=== PATIENT | female | born 1985 | race Caucasian/White ===

== ENCOUNTER 2017-11-17 05:10 | Inpatient (IN) | payer OTHER ==
[2017-11-16 16:54] LABS: Urine Appearance CLEAR; Urine Blood NEGATIVE (NEG); Urine Color DK YELLOW; Urine Glucose NEGATIVE (NEG); Urine Protein NEGATIVE (NEG); Urine Specific Gravity >=1.030 (1.005-1.030)
[2017-11-16 16:56] LABS: Absolute Lymphocytes (CBC) 1.5 K/uL (0.7-4.9); Absolute Monocytes 0.5 K/uL (0.1-1.3); Absolute Neutrophil 4.9 K/uL (1.8-8.0); Basophils % 0.5 % (0-1.3); Eosinophils % 1.3 % (0-4.4); Hematocrit 33.6 % (36.0-45.0); Lymphocytes % 20.9 % (15.3-44.8); MCH 26.8 pg (27.0-35.0); MCV 83.7 fL (80-100); MPV 11.3 fL (7.6-11.3); Monocytes % 6.7 % (3.3-12.3); RBC Red Blood Cell Count 4.02 M/uL (3.86-4.86)
[2017-11-16 17:03] LABS: Urine Bilirubin NEGATIVE (NEG); Urine Microscopic Reflex NO UMIC
[2017-11-16 17:10] LABS: Protime INR 0.91
[2017-11-16 23:53] LABS: RPR (Rapid Plasma Reagin) NON-REACT (NON-REACT); RPR Titer ND
[~2017-11-17 05:10] MED LIST: Ringers Lactate 1,000 ML IV PRN; Ringers Lactate 1,000 ML IV SCH
[2017-11-17] MEDS ORDERED: NA CIT/CITRIC AC 30 ML ORAL UDC ONE (06:06)
[2017-11-17] MEDS ORDERED: FAMOTIDINE 20 MG/2 ML VIAL IV ONE (06:07)
[2017-11-17] MEDS ORDERED: METOCLOPRAMIDE 10 MG/2mL INJ ONE (06:07)
[2017-11-17 06:38] VITALS: BMI 36.1
[2017-11-17] MEDS ORDERED: CARBOPROST TROME 250 MCG/ML IM ONE (07:09)
[2017-11-17] MEDS ORDERED: METHYLERGONOVINE 0.2MG/ML AMP IM ONE (07:09)
[2017-11-17] MEDS ORDERED: EPHEDRINE SULF 50 MG/ML SYR ONE (07:13)
[2017-11-17] MEDS ORDERED: GLYCOPYRROLATE 0.2 MG/ML SYR ONE (07:13)
[2017-11-17] MEDS ORDERED: MORPHINE SULFATE/PF 1 MG/ML (10 ML AMP) ONE (07:13)
[2017-11-17] MEDS ORDERED: OXYTOCIN 10 UNIT/ML ML IV ONE ×2 (07:14→07:44)
[2017-11-17] MEDS ORDERED: NS 0.9% VIAL 0 ML ONE (07:14)
[2017-11-17] MEDS ORDERED: CEFAZOLIN/SWI 2gm 2 GM/20 ML SYR IVP SCH (07:30)
[2017-11-17] MEDS ORDERED: ONDANSETRON HCL 40 MG/20 ML VIAL ONE (07:51)
[2017-11-17] MEDS ORDERED: BUPIVACAINE 0.75% (PF) 2 ML SP ONE (07:51)
[2017-11-17] MEDS ORDERED: ACETAMINOPHEN 500 MG TAB PO PRN (08:19)
[2017-11-17] MEDS ORDERED: KETOROLAC 30 MG/ML INJ IM PRN (08:19)
[2017-11-17] MEDS ORDERED: BISACODYL 10 MG RECTAL SUPP RECT PRN (08:19)
[2017-11-17] MEDS ORDERED: ONDANSETRON 4 MG (ODT) TAB PO PRN (08:19)
[2017-11-17] MEDS ORDERED: DIPHENHYDRAMINE 25 MG TAB/CAP PO PRN (08:19)
[2017-11-17] MEDS ORDERED: ONDANSETRON 4 MG/2 ML VIAL IV PRN (08:19)
[2017-11-17] MEDS ORDERED: Oxycodone HCl/Acetaminophen 1 TAB TAB PO PRN (08:19)
--- NOTE | 2017-11-17 08:25 | PREOPHP ---
Date of Admission: 11/17/2017 A 32-year-old, 5, para 2, AB 2, 39 weeks for repeat section. Infection, blood loss, anesthetic complications, injury to bladder, bowel, ureter, postoperative complications, clots in le gs, and pneumonia discussed. The patient knows fully well this does not constitute all the possible problems that could occur during or following surgery. Family History: Noncontributory. Allergies: THE PATIENT HAS NO ALLERGIES. Medications: She has been on Suboxone earlier in the for opioid problem she had in the pas t. She has history of depression and requests to be started on medication as soon as the baby is born later or the same day. Physical Examination: HEENT: Clear. Pupils equal, round, and reactive to light and accommodation. Conjunctivae well perf used. No oral, lingual, or buccal lesions. Chest and Lungs: Clear. Heart: Without murmurs, thrills, heaves, or rubs. The patient has had a problem of anemia during he r . Breasts: Without masses on previous visits. Abdomen: Term size. Baby is vertex, well applied. Extremities: Clear without edema, cyanosis, or clubbing. We will proceed with repeat secti on tomorrow morning. JUSTYN/JUDY Voice ID: [id number]
[2017-11-17] MEDS ORDERED: D5LR 1,000 ML with OXYTOCIN 20 UNIT IV SCH ×2 (09:00)
[2017-11-17] MEDS ORDERED: OXYTOCIN/LR 20 UNIT/1,000 ML BAG IV SCH (09:00)
[2017-11-17] MEDS ORDERED: CEFAZOLIN/SWI 2gm 2 GM/20 ML SYR IV SCH (09:15)
[2017-11-17] MEDS ORDERED: CEFAZOLIN 2 GM in NA CHLORIDE 0.9% 100 ML IVPB ONE (16:00)
[2017-11-17] MEDS ORDERED: CEFAZOLIN/SWI 2gm 2 GM/20 ML SYR IVP ONE (16:15)
[2017-11-17] MEDS: KETOROLAC 30 MG/ML INJ IV PRN (16:52)
--- NOTE | 2017-11-17 18:25 | OP ---
Surgeon: Josué Jewell MD Indications: A 32-year-old 5, para 2, AB 2, repeat section at 39 weeks. Full preop erative counseling concerning procedure and possible complications, including infection, blood loss, anesthetic complications, injury to bladder, bowel, ureter, postoperative complications, clots in leg s, and pneumonia. The patient knows fully well this does not constitute all the possible problems th at could occur during following surgery. Anesthesia: Spinal block anesthesia, Lynn Phan and Dr. Lewis. Manager Molecular Surgeon: Dr. Rodriguez. Description Of Procedure: After the patient was prepped and draped, timeout was performed. At this time, Pfannenstiel incision was created over the previous incision site. Incision was carried to the fascia. Fascia was incised and incision was carried transversely bilaterally. Anterior fascial pl ane was developed with both blunt and sharp dissection and the lower fascial plane was also developed . A defect was seen in the perineum and retraction was applied. A low transverse uterine incision w as created through an obviously thin lower uterine segment. A 6 pounds 7 ounces male was delivered w ith vacuum suction assistance, Apgars 8 and 9. Cord blood specimen was obtained. The placenta was r emoved manually. Uterus was cleared of clot and blood and exteriorized. Cervical os was dilated wit h ring clamp. All membranes were removed. The uterus was closed with a running-locked stitch of 1 c hromic followed by a single scwhch-kh-aaruf stitch in the right angle for complete hemostasis. Gutte rs were clear of clot and blood. Uterus was replaced in the peritoneal cavity. Inspection showed no further bleeding. The muscles were then reapproximated with 0 Vicryl four stitches. The fascia was closed with 1 PDS running from either angle to the midline. Subcutaneous tissue was closed with 2-0 plain. Absorbable shala and then metal shala. The patient had been given 2 g of Ancef. Tolera caitlyn all procedures well. She was transferred back to her room in good condition. Final Diagnoses: 1.Term intrauterine . 2.Repeat section. 3.Spinal block anesthesia. 4.Thin lower uterine segment. JUSTYN/JUDY Voice ID: [id number] Report ID: [id number]
[2017-11-18] MEDS: KETOROLAC 30 MG/ML INJ IV PRN (00:37)
--- NOTE | 2017-11-18 07:22 | PN ---
Shila Aquino is postoperatively doing quite well. H and H with minimal change. Lochia is normal . She has already ambulated. We will discontinue Mcdonald and IV. The patient requested during the pr egnancy and again this morning she will be started on antidepressants that she had some problems with her other deliveries . We will start her on Zoloft 100 mg a day immediately. If she cont inues to make good progress, we will send her home tomorrow. Full discussion with the patient and he r . No post spinal block problems. Rh positive, immune to Rubella. JUSTYN/MODL Voice ID: [id number] Report ID: [id number]
[2017-11-18] MEDS ORDERED: MAGNESIUM HYDROXIDE 8% 30 ML PO PRN (08:19)
[2017-11-18] MEDS: Oxycodone HCl/Acetaminophen 1 TAB TAB PO PRN (18:23)
[2017-11-19] MEDS: Oxycodone HCl/Acetaminophen 1 TAB TAB PO PRN (04:25)
[2017-11-19 07:56] VITALS: BP 126/80; TEMP 97.3
--- NOTE | 2017-11-19 23:06 | DS ---
Date of Discharge: 11/19/2017 Hospital Course: A 32-year-old female, 39 weeks, repeat section, delivered of a 6 pounds 7 ounce male infant, Apgars 8 and 9. Spinal block anesthesia. Thin lower uterine segment, 800 cc bloo d loss. Ancef for prophylaxis, pre and postop. Postoperatively, she is afebrile, ambulating, and vo iding. Lochia is normal. She is feeling better now that we have started her on antidepressant medic alin which she was requested during her to be started immediately post . She will se e me early next week for staple removal, to report any temperature elevation of 100 degrees or greate r, severe pain, heavy bleeding, or any other type of abnormalities. Dismissed with tramadol for anal gesia although she knows this goes through the breast milk and she choose to take Motrin instead. Jessy richardson has had her Tdap immunization. She has no post spinal block problems. Final Diagnoses: 1.Term intrauterine . 2.Repeat section. 3.Spinal block anesthesia. 4.Thin lower uterine segment. 5.Maternal history of depression . JUSTYN/JUDY Voice ID: [id number] Report ID: [id number]
--- NOTE | 2017-11-19 23:21 | DS ---
Date of Discharge: 11/19/2017 Hospital Course: A 32-year-old 8, para 5, at 39 weeks scheduled for induction following morn ing, came in active labor, subsequently delivered a 6 pounds 7 ounces , Apgars 8 and 9. DICTATION ENDS HERE JUSTYN/JUDY Voice ID: [id number] Report ID: [id number]
[2017-11-20 03:31] LABS: HBsAG Nonreactive (Nonreactive)
== END 2017-11-19 10:20 | disposition home or self-care (01) | DRG 766 ==
LOC: 2ND-WC 05:10
PROVIDERS: ADMIT Specialist; ATTEND Specialist
PROC: 10D00Z1 Extraction of Products of Conception, Low, Open Approach (ICD-10-PCS; principal; 2017-11-17 07:30)
DX: O34.211 Maternal care for low transverse scar from previous cesarean delivery (principal); N85.8 Other specified noninflammatory disorders of uterus; Z3A.39 39 weeks gestation of pregnancy; Z37.0 Single live birth; O94 Sequelae of complication of pregnancy, childbirth, and the puerperium; F53 Mental and behavioral disorders associated with the puerperium, not elsewhere classified
CPT/HCPCS: 36415; 81003; 85014; 85025; 85610; 85730; 86592; 86850; 86900; 86901; 87340; 88307; J0690; J2210; J2405; J2590; J2765

== ENCOUNTER 2018-02-11 17:02 | Emergency (ER) | payer OTHER ==
[2018-02-11] MEDS ORDERED: cloNIDine HCl 0.1 MG TAB ONE (17:23)
[2018-02-11 17:53] LABS: Absolute Lymphocytes (CBC) 1.2 K/uL (0.7-4.9); Absolute Monocytes 0.4 K/uL (0.1-1.3); Basophils % 0.5 % (0-1.3); Eosinophils % 3.1 % (0-4.4); Hematocrit 34.4 % (36.0-45.0); Lymphocytes % 20.7 % (15.3-44.8); MCH 28.3 pg (27.0-35.0); MCV 84.1 fL (80-100); MPV 9.8 fL (7.6-11.3); Monocytes % 7.6 % (3.3-12.3); RBC Red Blood Cell Count 4.09 M/uL (3.86-4.86)
[2018-02-11 18:00] LABS: Urine Blood NEGATIVE (NEG); Urine Glucose NEGATIVE (NEG); Urine Protein NEGATIVE (NEG); Urine pH 5.5 (5.0-7.0)
[2018-02-11 18:13] LABS: BUN Blood Urea Nitrogen 12 mg/dL (7-18); Bicarbonate 30 mmol/L (21-32); Glucose Level 97 mg/dL (74-106); Potassium 3.9 mmol/L (3.5-5.1); Sodium Level 140 mmol/L (136-145); Troponin (Emerg Dept Use Only) < 0.02 ng/mL (0.0-0.045)
--- NOTE | 2018-02-11 18:18 | ER ---
Nurse's Notes [facility] Name: Shila Aquino Age: 32 yrs Sex: Female : 1985 Arrival Date: 02/11/2018 Time: 17:03 Bed 26 Private MD: None, None Diagnosis: Hypertension Presentation: 02/11 17:07 Presenting complaint: Patient states: "I've been really dizzy today. I've had high aj1 blood pressure since November. I went to [facility] and my blood pressure was 178/113. My body has been just randomly jerking for the past 2 to 3 weeks" Patient has not seen her PHCP regarding any of these complaints. Transition of care: patient was not received from another setting of care. Onset of symptoms was 2017. Risk Assessment: Do you want to hurt yourself or someone else? Patient reports no desire to harm self or others. Initial Sepsis Screen: Does the patient meet any 2 criteria? No. Patient's initial sepsis screen is negative. Does the patient have a suspected source of infection? No. Patient's initial sepsis screen is negative. Care prior to arrival: None. 17:07 Method Of Arrival: Ambulatory aj1 17:07 Acuity: LEELA 3 aj1 Triage Assessment: 17:10 General: Appears in no apparent distress. comfortable, Behavior is calm, cooperative, aj1 appropriate for age. Pain: Pain currently is 5 out of 10 on a pain scale. Neuro: Level of Consciousness is awake, alert, obeys commands. Cardiovascular: Patient's skin is warm and dry. Respiratory: Airway is patent Respiratory effort is even, unlabored, Respiratory pattern is regular, symmetrical. SURGICAL LEAD: 17:10 LMP N/A - Irregular menses aj1 Historical: - Allergies: 17:10 No Known Allergies; aj1 - Home Meds: 17:10 suboxone [Active]; aj1 - PMHx: 17:10 Chronic pain; aj1 - PSHx: 17:10 ; aj1 - Immunization history:: Flu vaccine is not up to date. - Social history:: Smoking status: Patient/guardian denies using tobacco. - Ebola Screening: : Patient denies travel to an Ebola-affected area in the 21 days before illness onset. - Family history:: not pertinent. - Hospitalizations: : No recent hospitalization is reported. Screenin:40 Abuse screen: Denies threats or abuse. Denies injuries from another. Nutritional rv screening: No deficits noted. Tuberculosis screening: No symptoms or risk factors identified. Fall Risk None identified. Assessment: 18:41 General: Appears in no apparent distress. comfortable, Behavior is calm, cooperative. rv Pain: Denies pain. Neuro: Level of Consciousness is awake, alert, obeys commands, Oriented to person, place, time, situation. Cardiovascular: Capillary refill < 3 seconds. Respiratory: Airway is patent. GI: No signs and/or symptoms were reported involving the gastrointestinal system. : No signs and/or symptoms were reported regarding the genitourinary system. EENT: No signs and/or symptoms were reported regarding the EENT system. Derm: Skin is intact. Vital Signs: 17:10 BP 155 / 110; Pulse 92; Resp 18; Temp 97.8; Pulse Ox 100% ; Weight 84.37 kg (R); Height aj1 5 ft. 7 in. (170.18 cm) (R); Pain 5/10; 18:40 BP 147 / 94; Pulse 70; Pulse Ox 100% on R/A; rv 17:10 Body Mass Index 29.13 (84.37 kg, 170.18 cm) aj1 ED Course: 17:03 Patient arrived in ED. sb2 17:03 None, None is Private Physician. sb2 17:08 Triage completed. aj1 17:10 Arm band placed on Patient placed in an exam room. aj1 17:12 Cali Fernandez MD is Attending Physician. rn 17:34 EKG done, by lamination technician. reviewed by Cali Fernandez MD. sm3 17:35 Missed attempt(s): 22 gauge in right wrist. Bleeding controlled, band aid applied, ss catheter tip intact. 18:41 Patient has correct armband on for positive identification. Bed in low position. Call rv light in reach. Side rails up X 1. Adult w/ patient. Pulse ox on. NIBP on. 18:41 No provider procedures requiring assistance completed. Patient did not have IV access rv during this emergency room visit. Administered Medications: 17:28 CANCELLED (Duplicate Order): cloNIDine 0.2 mg PO once rn 17:52 Not Given (bp improved): cloNIDine 0.1 mg PO once rn Outcome: 18:17 Discharge ordered by . rn 18:42 Discharged to home ambulatory. rv 18:42 Condition: improved 18:42 Discharge instructions given to patient, Instructed on discharge instructions, follow up and referral plans. Demonstrated understanding of instructions, follow-up care. 18:42 Patient left the ED. rv Signatures: Mary Osman, RN RN aj1 Cali Fernandez MD MD rn Smirch, Shelby, RN RN ss Adelaida Rico 2 Ayana Maynard 3 Louie Kelley RN RN rv
--- NOTE | 2018-02-11 18:18 | EDPHYS ---
Physician Documentation [facility] Name: Shila Aquino Age: 32 yrs Sex: Female : 1985 Arrival Date: 02/11/2018 Time: 17:03 Bed 26 Private MD: None, None ED Physician Cali Fernandez HPI: 02/11 18:13 This 32 yrs old Female presents to ER via Ambulatory with complaints of High rn Blood Pressure. 18:13 The patient has elevated blood pressure and discovered this at a drugstore. Onset: The rn symptoms/episode began/occurred at an unknown time. Modifying factors: The symptoms are aggravated by The symptoms are alleviated by. Severity of symptoms: At its worst the blood pressure was moderate, in the emergency department the blood pressure is improved. The patient has experienced similar episodes in the past. Reports has had high blood pressure for last month or so, has been feeling dizzy/lightheaded, fatigued, mild headaches, checked BP today at drug store, was very high, came in for eval. Also took one of her father's bp pills, unknown name. Currently asymptomatic. . BALLET DANCER: 17:10 LMP N/A - Irregular menses aj1 Historical: - Allergies: 17:10 No Known Allergies; aj1 - Home Meds: 17:10 suboxone [Active]; aj1 - PMHx: 17:10 Chronic pain; aj1 - PSHx: 17:10 ; aj1 - Immunization history:: Flu vaccine is not up to date. - Social history:: Smoking status: Patient/guardian denies using tobacco. - Ebola Screening: : Patient denies travel to an Ebola-affected area in the 21 days before illness onset. - Family history:: not pertinent. - Hospitalizations: : No recent hospitalization is reported. ROS: 18:13 Constitutional: Negative for fever, chills, and weight loss, Eyes: Negative for injury, rn pain, redness, and discharge, Neck: Negative for injury, pain, and swelling, Cardiovascular: Negative for chest pain, palpitations, and edema, Respiratory: Negative for shortness of breath, cough, wheezing, and pleuritic chest pain, Abdomen/GI: Negative for abdominal pain, nausea, vomiting, diarrhea, and constipation, MS/Extremity: Negative for injury and deformity, Skin: Negative for injury, rash, and discoloration, Neuro: Negative for headache, weakness, numbness, tingling, and seizure. Exam: 18:13 Constitutional: This is a well developed, well nourished patient who is awake, alert, rn and in no acute distress. Head/Face: Normocephalic, atraumatic. Eyes: Pupils equal round and reactive to light, extra-ocular motions intact. Cardiovascular: Regular rate and rhythm with a normal S1 and S2. No gallops, murmurs, or rubs. Normal PMI, no JVD. No pulse deficits. Respiratory: Lungs have equal breath sounds bilaterally, clear to auscultation and percussion. No rales, rhonchi or wheezes noted. No increased work of breathing, no retractions or nasal flaring. Skin: Warm, dry with normal turgor. Normal color with no rashes, no lesions, and no evidence of cellulitis. MS/ Extremity: Pulses equal, no cyanosis. Neurovascular intact. Full, normal range of motion. Equal circumference. Neuro: Awake and alert, GCS 15, oriented to person, place, time, and situation. Cranial nerves II-XII grossly intact. Motor strength 5/5 in all extremities. Sensory grossly intact. Cerebellar exam normal. Normal gait. Vital Signs: 17:10 BP 155 / 110; Pulse 92; Resp 18; Temp 97.8; Pulse Ox 100% ; Weight 84.37 kg (R); Height aj1 5 ft. 7 in. (170.18 cm) (R); Pain 5/10; 18:40 BP 147 / 94; Pulse 70; Pulse Ox 100% on R/A; rv 17:10 Body Mass Index 29.13 (84.37 kg, 170.18 cm) aj1 MDM: 17:12 Patient medically screened. rn 18:15 Differential diagnosis: hypertensive crisis, Malignant HTN. Data reviewed: vital signs, rn nurses notes, lab test result(s), EKG, and as a result, I will discharge patient. Counseling: I had a detailed discussion with the patient and/or guardian regarding: the historical points, exam findings, and any diagnostic results supporting the discharge/admit diagnosis, lab results, the need for outpatient follow up, to return to the emergency department if symptoms worsen or persist or if there are any questions or concerns that arise at home. Response to treatment: the patient's symptoms have markedly improved after treatment, the patient is now symptom free, and as a result, I will discharge patient. Special discussion: I have referred the patient to see his PCP for further evaluation of high blood pressure. I discussed with the patient/guardian in detail that at this point there is no indication for admission to the hospital. It is understood, however, that if the symptoms persist or worsen the patient needs to return immediately for re-evaluation. Based on the history and exam findings, there is no indication for further emergent testing or inpatient evaluation. I discussed with the patient/guardian the need to see the primary care provider for further evaluation of the symptoms. ED course: Pt with improved BP without treatment, will dc home with pcp f/u, recommended BP journal, mother states she is going to make appt with cardiology for further eval and BP management. . 02/11 17:14 Order name: CBC with Diff; Complete Time: 18:13 rn 02/11 17:14 Order name: Basic Metabolic Panel; Complete Time: 18:15 rn 02/11 17:14 Order name: Troponin (emerg Dept Use Only); Complete Time: 18:15 rn 02/11 17:55 Order name: Urine Dipstick--Ancillary (enter results); Complete Time: 18:13 02/11 17:55 Order name: Urine --Ancillary (enter results); Complete Time: 18:13 02/11 17:13 Order name: EKG; Complete Time: 17:13 rn 02/11 17:13 Order name: EKG - Nurse/Tech; Complete Time: 17:56 rn 02/11 17:14 Order name: IV Start; Complete Time: 17:45 rn Administered Medications: 17:28 CANCELLED (Duplicate Order): cloNIDine 0.2 mg PO once rn 17:52 Not Given (bp improved): cloNIDine 0.1 mg PO once rn Disposition: 02/11/18 18:17 Discharged to Home. Impression: Hypertension. - Condition is Stable. - Discharge Instructions: Hypertension. - Medication Reconciliation Form, Thank You Letter, Antibiotic Education, Prescription Opioid Use, Work release form form. - Follow up: Private Physician; When: As needed; Reason: Recheck today's complaints, Re-evaluation by your physician. - Problem is an ongoing problem. - Symptoms have improved. Signatures: Dispatcher [employer] Mary Gaytan, RN RN aj1 Cali Fernandez MD MD rn Louie Kelley RN RN rv Corrections: (The following items were deleted from the chart) 17:28 17:13 cloNIDine 0.2 mg PO once ordered. rn rn 18:42 18:17 02/11/2018 18:17 Discharged to Home. Impression: Hypertension. Condition is rv Stable. Forms are Medication Reconciliation Form, Thank You Letter, Antibiotic Education, Prescription Opioid Use. Follow up: Private Physician; When: As needed; Reason: Recheck today's complaints, Re-evaluation by your physician. Problem is an ongoing problem. Symptoms have improved. rn
[2018-02-11 18:52] VITALS: TEMP 97.8; O2SAT 100
[2018-02-11 18:54] VITALS: BP 147/94
--- NOTE | 2018-02-11 22:26 | EKG ---
Test Date: 2018-02-11 Test Time: 17:29:20 Organic Section Technical Lead: ALBERTO MEASUREMENT RESULTS: Intervals: Rate: 77 OR: 134 QRSD: 74 QT: 368 QTc: 416 [place]: P: 16 OR: 134 QRS: 10 T: 2 INTERPRETIVE STATEMENTS: Normal sinus rhythm Normal ECG No previous ECG available for comparison Electronically Signed On 02-11-18 22:26:06 CDT by Ernesto Sawant
== END 2018-02-11 18:42 | disposition home or self-care (01) ==
LOC: ER 17:02
DX: I10 Essential (primary) hypertension (principal)
CPT/HCPCS: 36415; 80048; 81003; 81025; 84484; 85025; 93005; 99283

== ENCOUNTER 2019-05-12 18:11 | Emergency (ER) | payer SELFPAY ==
--- NOTE | 2019-05-12 19:39 | ER ---
Nurse's Notes [facility] Name: Shila Taylor Age: 33 yrs Sex: Female : 1985 Arrival Date: 05/12/2019 Time: 18:12 Bed 10 Private MD: Diagnosis: Enteroviral vesicular pharyngitis Presentation: 05/12 18:14 Presenting complaint: Patient states: fever, headache, sore throat since yesterday. sr5 Pt's son being treated for [id number] disease. At 430pm Tylenol. Transition of care: patient was not received from another setting of care. Onset of symptoms was May 11, 2019. Risk Assessment: Do you want to hurt yourself or someone else? Patient reports no desire to harm self or others. Initial Sepsis Screen: Does the patient meet any 2 criteria? HR > 90 bpm. Does the patient have a suspected source of infection? Yes: Other: sore throat. Care prior to arrival: Medication(s) given: Tylenol. 18:14 Method Of Arrival: Ambulatory 5 18:14 Acuity: LEELA 4 sr5 Triage Assessment: 18:17 General: Appears ill, Behavior is calm, cooperative. Pain: Complains of pain in left sr5 rastafari Pain currently is 5 out of 10 on a pain scale. EENT: Reports sore throat. Neuro: Level of Consciousness is awake, alert, obeys commands, Oriented to person, place, time, situation, Gait is steady, Speech is normal. Cardiovascular: Patient's skin is warm and dry. Respiratory: Respiratory effort is even, unlabored, Respiratory pattern is regular, symmetrical. CRIBBER: 18:17 LMP 05/03/2019 sr5 Historical: - Allergies: 18:17 No Known Allergies; sr5 - Home Meds: 18:17 Suboxone [Active]; sr5 - PMHx: 18:17 Chronic pain; sr5 - PSHx: 18:17 ; sr5 - Immunization history:: Flu vaccine is not up to date. - Social history:: Smoking status: Patient/guardian denies using tobacco, never smoked. - Ebola Screening: : Patient negative for fever greater than or equal to 101.5 degrees Fahrenheit, and additional compatible Ebola Virus Disease symptoms. Screenin:37 Abuse screen: Denies threats or abuse. Denies injuries from another. Nutritional rr5 screening: No deficits noted. Tuberculosis screening: No symptoms or risk factors identified. Fall Risk None identified. Total Anderson Fall Scale indicates No Risk (0-24 pts). Assessment: 19:15 General: Appears in no apparent distress. uncomfortable, Behavior is calm, cooperative, rr5 appropriate for age, Reports fever for awaiting for result.. 19:15 Pain: Complains of pain in head, throat Pain does not radiate. Pain currently is 5 out rr5 of 10 on a pain scale. Quality of pain is described as aching, Pain began gradually, Is intermittent. Neuro: Level of Consciousness is awake, alert, obeys commands, Oriented to person, place, time, situation, Appropriate for age Reports headache. Cardiovascular: Capillary refill < 3 seconds Patient's skin is warm and dry. Respiratory: Airway is patent Respiratory effort is even, unlabored, Respiratory pattern is regular, symmetrical. GI: No signs and/or symptoms were reported involving the gastrointestinal system. : No signs and/or symptoms were reported regarding the genitourinary system. EENT: Reports pain in throat. Derm: Skin is intact, Skin temperature is warm. Musculoskeletal: Circulation, motion, and sensation intact. Capillary refill < 3 seconds. 19:48 Reassessment: Patient appears in no apparent distress at this time. Patient is alert, rr5 oriented x 3, equal unlabored respirations, skin warm/dry/pink. discharge instruction given and explained without complaints made, verbalized understading. Vital Signs: 18:17 BP 126 / 104; Pulse 107; Resp 18; Temp 99.8; Pulse Ox 97% on R/A; Weight 100.24 kg (R); sr5 Height 5 ft. 7 in. (170.18 cm); Pain 5/10; 19:40 BP 139 / 82; Pulse 95; Resp 17; Temp 99; Pulse Ox 99% ; rr5 18:17 Body Mass Index 34.61 (100.24 kg, 170.18 cm) sr5 ED Course: 18:12 Patient arrived in ED. rg4 18:16 Triage completed. sr5 18:17 Alyssia Waters FNP-C is [facility]. kb 18:17 Cali Fernandez MD is Attending Physician. kb 18:17 Arm band placed on right wrist. sr5 19:00 Rutherford, Kevin, RN is Primary Nurse. rr5 19:15 Patient has correct armband on for positive identification. Call light in reach. rr5 19:15 No provider procedures requiring assistance completed. Patient did not have IV access rr5 during this emergency room visit. Administered Medications: No medications were administered Outcome: 19:38 Discharge ordered by . kb 19:49 Discharged to home ambulatory. rr5 19:49 Condition: stable 19:49 Discharge instructions given to patient, Instructed on discharge instructions, follow up and referral plans. Demonstrated understanding of instructions, follow-up care. 19:49 Patient left the ED. rr5 Signatures: Alyssia Waters, SCRAP BALER-C NIEVES-Rory Dasilva RN RN sr5 Mireya Arredondo rg4 Kevin Rutherford, RN RN rr5
--- NOTE | 2019-05-12 19:40 | EDPHYS ---
Physician Documentation [facility] Name: Shila Taylor Age: 33 yrs Sex: Female : 1985 Arrival Date: 05/12/2019 Time: 18:12 Bed 10 Private MD: ED Physician Cali Fernandez HPI: 05/12 19:41 This 33 yrs old Female presents to ER via Ambulatory with complaints of Fever.kb 19:41 The patient presents with sore throat. The patient describes throat pain as constant. kb Onset: The symptoms/episode began/occurred yesterday. Severity of symptoms: At their worst the symptoms were moderate, in the emergency department the symptoms are unchanged. Modifying factors: The symptoms are alleviated by nothing, the symptoms are aggravated by swallowing, Patient's oral intake status: limited fluid intake, limited food intake. Associated signs and symptoms: Pertinent positives: fever, Sore throat. The patient has not experienced similar symptoms in the past. The patient has not recently seen a physician. 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 - Social history:: Smoking status: Patient/guardian denies using tobacco, never smoked. - Ebola Screening: : Patient negative for fever greater than or equal to 101.5 degrees Fahrenheit, and additional compatible Ebola Virus Disease symptoms. ROS: 19:39 Neck: Negative for injury, pain, and swelling, Cardiovascular: Negative for chest pain, kb palpitations, and edema, Respiratory: Negative for shortness of breath, cough, wheezing, and pleuritic chest pain, Abdomen/GI: Negative for abdominal pain, nausea, vomiting, diarrhea, and constipation, Back: Negative for injury and pain, MS/Extremity: Negative for injury and deformity, Skin: Negative for injury, rash, and discoloration. 19:39 Constitutional: Positive for fever, malaise. 19:39 ENT: Positive for sore throat. 19:39 Neuro: Positive for headache. Exam: 19:39 Constitutional: This is a well developed, well nourished patient who is awake, alert, kb and in no acute distress. Head/Face: Normocephalic, atraumatic. Neck: Trachea midline, no thyromegaly or masses palpated, and no cervical lymphadenopathy. Supple, full range of motion without nuchal rigidity, or vertebral point tenderness. No Meningismus. Chest/axilla: Normal chest wall appearance and motion. Nontender with no deformity. No lesions are appreciated. Cardiovascular: Regular rate and rhythm with a normal S1 and S2. No gallops, murmurs, or rubs. Normal PMI, no JVD. No pulse deficits. Respiratory: Lungs have equal breath sounds bilaterally, clear to auscultation and percussion. No rales, rhonchi or wheezes noted. No increased work of breathing, no retractions or nasal flaring. Abdomen/GI: Soft, non-tender, with normal bowel sounds. No distension or tympany. No guarding or rebound. No evidence of tenderness throughout. Back: No spinal tenderness. No costovertebral tenderness. Full range of motion. Skin: Warm, dry with normal turgor. Normal color with no rashes, no lesions, and no evidence of cellulitis. MS/ Extremity: Pulses equal, no cyanosis. Neurovascular intact. Full, normal range of motion. Neuro: Awake and alert, GCS 15, oriented to person, place, time, and situation. Cranial nerves II-XII grossly intact. Motor strength 5/5 in all extremities. Sensory grossly intact. Cerebellar exam normal. Normal gait. 19:39 ENT: External ear(s): are unremarkable, Ear canal(s): are normal, TM's: are normal, Nose: is normal, Mouth: Oral mucosa: noted to have ulceration(s). Vital Signs: 18:17 BP 126 / 104; Pulse 107; Resp 18; Temp 99.8; Pulse Ox 97% on R/A; Weight 100.24 kg (R); sr5 Height 5 ft. 7 in. (170.18 cm); Pain 5/10; 19:40 BP 139 / 82; Pulse 95; Resp 17; Temp 99; Pulse Ox 99% ; rr5 18:17 Body Mass Index 34.61 (100.24 kg, 170.18 cm) sr5 MDM: 19:01 Patient medically screened. kb 19:37 Data reviewed: vital signs, nurses notes. Data interpreted: Pulse oximetry: on room air kb is 97 %. Interpretation: normal. Counseling: I had a detailed discussion with the patient and/or guardian regarding: the historical points, exam findings, and any diagnostic results supporting the discharge/admit diagnosis, lab results, the need for outpatient follow up, a family practitioner, to return to the emergency department if symptoms worsen or persist or if there are any questions or concerns that arise at home. 05/12 18:19 Order name: Flu; Complete Time: 19:01 sr5 05/12 18:19 Order name: Strep; Complete Time: 19:24 sr5 05/12 19:21 Order name: Throat Culture EDMS Administered Medications: No medications were administered Disposition: 05/13 05:56 Co-signature as Attending Physician, Cali Fernandez MD I agree with the assessment and rn plan of care. Disposition: 05/12/19 19:38 Discharged to Home. Impression: Enteroviral vesicular pharyngitis. - Condition is Stable. - Discharge Instructions: Herpangina, Pediatric, Hand, Foot, and Mouth Disease, Pediatric, [id number]. - Medication Reconciliation Form, Thank You Letter, Antibiotic Education, Prescription Opioid Use, Work release form form. - Follow up: Emergency Department; When: As needed; Reason: Worsening of condition. Follow up: Private Physician; When: 2 - 3 days; Reason: Recheck today's complaints, Continuance of care, Re-evaluation by your physician. Signatures: Dispatcher [employer] EDMO Alyssia Waters, MAIL MANAGER-C MAIL MANAGER-Ckb Cali Fernandez MD MD rn Resecker, Sam RN RN sr5 Kevin Rutherford RN RN rr5 Corrections: (The following items were deleted from the chart) 05/12 19:49 19:38 05/12/2019 19:38 Discharged to Home. Impression: Enteroviral vesicular rr5 pharyngitis. Condition is Stable. Forms are Medication Reconciliation Form, Thank You Letter, Antibiotic Education, Prescription Opioid Use. Follow up: Emergency Department; When: As needed; Reason: Worsening of condition. Follow up: Private Physician; When: 2 - 3 days; Reason: Recheck today's complaints, Continuance of care, Re-evaluation by your physician. kb
[2019-05-12 21:43] VITALS: BP 139/82; TEMP 99; O2SAT 99
== END 2019-05-12 19:49 | disposition home or self-care (01) ==
LOC: ER 18:11
DX: B08.5 Enteroviral vesicular pharyngitis (principal)
CPT/HCPCS: 87070; 87081; 87804; 99281

== ENCOUNTER 2019-07-28 18:31 | Emergency (ER) | payer SELFPAY ==
[2019-07-28] MEDS ORDERED: ACETAMINOPHEN 500 MG TAB ONE (20:30)
--- NOTE | 2019-07-28 21:28 | ER ---
Nurse's Notes [facility] Name: Shila Taylor Age: 34 yrs Sex: Female : 1985 Arrival Date: 07/28/2019 Time: 18:33 Bed 18 Private MD: Diagnosis: Acute bronchitis, unspecified Presentation: 07/27 19:02 Chief complaint: Patient states: Low grade fever last night, productive cough and jl7 nausea since yesterday. Coronavirus screen: The patient has NOT traveled to a country currently being monitored by the [facility] within the last 14 days. Proceed with normal triage procedures. The patient has NOT had contact with any known and/or suspected case of coronavirus. Proceed with normal triage procedures. Ebola Screen: No symptoms or risks identified at this time. Initial Sepsis Screen: Does the patient meet any 2 criteria? No. Patient's initial sepsis screen is negative. Does the patient have a suspected source of infection? Yes: Productive cough/pneumonia. Risk Assessment: Do you want to hurt yourself or someone else? Patient reports no desire to harm self or others. Onset of symptoms was July 27, 2019. 19:02 Method Of Arrival: Ambulatory [facility] 19:02 Acuity: LEELA 4 jl7 Triage Assessment: 19:05 Headache History: The patient has had previous headaches and this one is similar to jl7 previous episodes. General: Appears in no apparent distress. uncomfortable, Behavior is calm, cooperative, appropriate for age. Pain: Complains of pain in BUCK Pain currently is 7 out of 10 on a pain scale. Pain began 1 day ago. Also complains of no other associated symptoms. Neuro: Level of Consciousness is awake, alert, obeys commands. 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 - Social history:: Smoking status: Patient denies any tobacco usage or history of. Screenin:31 Abuse screen: Denies threats or abuse. Denies injuries from another. Nutritional rv screening: On. Tuberculosis screening: No symptoms or risk factors identified. Fall Risk None identified. Assessment: 20:30 General: Appears in no apparent distress. comfortable, Behavior is calm, cooperative. rv 20:30 Pain: Denies pain. Neuro: Level of Consciousness is awake, alert, obeys commands, rv Oriented to person, place, time, situation. Cardiovascular: Patient's skin is warm and dry. Respiratory: Airway is patent Breath sounds are clear bilaterally. Derm: Skin is healthy with good turgor. Vital Signs: 19:02 BP 156 / 114; Pulse 79; Resp 17 S; Temp 98.2(O); Pulse Ox 99% on R/A; Weight 99.79 kg jl7 (R); Height 5 ft. 7 in. (170.18 cm) (R); Pain 7/10; 21:25 BP 149 / 108; Pulse 63; Resp 16; Temp 98; Pulse Ox 100% on R/A; rv 19:02 Body Mass Index 34.46 (99.79 kg, 170.18 cm) jl7 ED Course: 18:33 Patient arrived in ED. ag5 19:04 Triage completed. jl7 19:05 Arm band placed on right wrist. jl7 20:01 Adam Lama FNP-C is [facility]. la1 20:01 Barry Lorenz MD is Attending Physician. la1 20:02 Louie Kelley, MAMI is Primary Nurse. rv 20:30 Patient has correct armband on for positive identification. Pulse ox on. NIBP on. rv 20:47 Chest Pa And Lat (2 Views) XRAY In Process Unspecified. EDMS 20:58 Flu Sent. rv 21:31 No provider procedures requiring assistance completed. Patient did not have IV access rv during this emergency room visit. Administered Medications: 20:45 Drug: Tylenol 1000 mg Route: PO; rv 21:33 Follow up: Response: No adverse reaction rv Outcome: 21:27 Discharge ordered by . la1 21:31 Discharged to home ambulatory. rv 21:31 Condition: good 21:31 Discharge instructions given to patient, Instructed on discharge instructions, follow up and referral plans. medication usage, Demonstrated understanding of instructions, follow-up care, medications, Prescriptions given X 2. 21:33 Patient left the ED. rv Signatures: Dispatcher [employer] EDMS Adam Lama FNP-C FNP-Cla1 Clary Spence, RN RN jl7 Louie Kelley, RN RN rv Arie, Eldon ag5
--- NOTE | 2019-07-28 21:29 | EDPHYS ---
Physician Documentation [facility] Name: Shila Taylor Age: 34 yrs Sex: Female : 1985 Arrival Date: 07/28/2019 Time: 18:33 Bed 18 Private MD: ED Physician Barry Lorenz HPI: 07/27 21:24 This 34 yrs old Female presents to ER via Ambulatory with complaints of la1 Cough, Headache, Fever. 21:24 The patient or guardian reports cough, described as mild. Severity of symptoms: At la1 their worst the symptoms were mild. Modifying factors: The symptoms are alleviated by nothing, the symptoms are aggravated by nothing. The patient has not experienced similar symptoms in the past. 21:24 pt reports cough, low grade fever, nausea, BUCK since yesterday. 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 - Social history:: Smoking status: Patient denies any tobacco usage or history of. ROS: 21:24 Constitutional: + low grade fever Eyes: Negative for injury, pain, redness, and la1 discharge, ENT: Negative for injury, pain, and discharge, Neck: Negative for injury, pain, and swelling, Cardiovascular: Negative for chest pain, palpitations, and edema. 21:24 Abdomen/GI: + for nausea Back: Negative for injury and pain, : Negative for injury, bleeding, discharge, and swelling, MS/Extremity: Negative for injury and deformity, Skin: Negative for injury, rash, and discoloration. 21:24 Respiratory: Positive for cough. 21:24 Neuro: Positive for headache. Exam: 21:25 Constitutional: This is a well developed, well nourished patient who is awake, alert, la1 and in no acute distress. Head/Face: Normocephalic, atraumatic. Eyes: Pupils equal round and reactive to light, extra-ocular motions intact. ENT: Nares patent. No nasal discharge, no septal abnormalities noted. Tympanic membranes are normal and external auditory canals are clear. Oropharynx with no redness, swelling, or masses, exudates, or evidence of obstruction, uvula midline. Mucous membranes moist. Neck: Trachea midline, no thyromegaly or masses palpated, and no cervical lymphadenopathy. Supple, full range of motion without nuchal rigidity, or vertebral point tenderness. No Meningismus. Chest/axilla: Normal chest wall appearance and motion. Nontender with no deformity. No lesions are appreciated. Cardiovascular: Regular rate and rhythm with a normal S1 and S2. No gallops, murmurs, or rubs. Normal PMI, no JVD. No pulse deficits. Respiratory: Lungs have equal breath sounds bilaterally, clear to auscultation Abdomen/GI: Soft, non-tender, with normal bowel sounds. Back: No spinal tenderness. No costovertebral tenderness. Full range of motion. Skin: Warm, dry with normal turgor. Normal color with no rashes, no lesions, and no evidence of cellulitis. MS/ Extremity: Pulses equal, no cyanosis. Neurovascular intact. Full, normal range of motion. Vital Signs: 19:02 BP 156 / 114; Pulse 79; Resp 17 S; Temp 98.2(O); Pulse Ox 99% on R/A; Weight 99.79 kg 7 (R); Height 5 ft. 7 in. (170.18 cm) (R); Pain 7/10; 21:25 BP 149 / 108; Pulse 63; Resp 16; Temp 98; Pulse Ox 100% on R/A; rv 19:02 Body Mass Index 34.46 (99.79 kg, 170.18 cm) [facility] MDM: 20:01 Patient medically screened. la1 21:27 Data reviewed: vital signs, nurses notes, lab test result(s), EKG, radiologic studies, la1 and as a result, I will discharge patient. Data interpreted: Pulse oximetry: on room air is 100 %. Interpretation: normal. Counseling: I had a detailed discussion with the patient and/or guardian regarding: the historical points, exam findings, and any diagnostic results supporting the discharge/admit diagnosis, the presence of at least one elevated blood pressure reading (>120/80) during this emergency department visit, lab results, radiology results, the need for outpatient follow up, a family practitioner, to return to the emergency department if symptoms worsen or persist or if there are any questions or concerns that arise at home. Special discussion: I discussed with the patient/guardian that the patient's current presentation does not indicate dosing of antibiotics. They should follow-up with their primary care provider and return if the symptoms persist or progress. 07/27 20:16 Order name: Flu; Complete Time: 21:26 la1 07/27 20:16 Order name: Chest Pa And Lat (2 Views) XRAY la1 07/27 20:16 Order name: EKG; Complete Time: 20:16 la1 07/27 20:16 Order name: EKG - Nurse/Tech; Complete Time: 20:58 la1 07/27 21:04 Order name: Misc. Order: please repeat blood pressure; Complete Time: 21:30 la Administered Medications: 20:45 Drug: Tylenol 1000 mg Route: PO; rv 21:33 Follow up: Response: No adverse reaction rv Disposition: 07/28 07:51 Co-signature as Attending Physician, Barry Lorenz MD I agree with the assessment and evelyn plan of care. Chart complete. Disposition: 07/28/19 21:27 Discharged to Home. Impression: Acute bronchitis, unspecified. - Condition is Stable. - Discharge Instructions: Acute Bronchitis, Adult, General Headache Without Cause, Cough, Adult. - Prescriptions for Tessalon Perles 100 mg Oral Capsule - take 1 capsule by ORAL route every 8 hours As needed; 15 capsule. Medrol (Jorden) 4 mg Oral Tablets, Dose Pack - take 1 tablet by ORAL route as directed - follow package instructions; 1 packet. - Medication Reconciliation Form, Thank You Letter form. - Follow up: Private Physician; When: 2 - 3 days; Reason: Recheck today's complaints, Re-evaluation by your physician. - Problem is new. - Symptoms have improved. Signatures: Dispatcher [employer] Barry Wilson MD MD cha Attema, Lee, PRESS LEADER-C PRESS LEADER-Cla1 Clary Spence, RN RN jl7 Louie Kelley RN RN rv Corrections: (The following items were deleted from the chart) 07/27 21:33 21:27 07/28/2019 21:27 Discharged to Home. Impression: Acute bronchitis, unspecified. rv Condition is Stable. Forms are Medication Reconciliation Form, Thank You Letter, Antibiotic Education, Prescription Opioid Use. Follow up: Private Physician; When: 2 - 3 days; Reason: Recheck today's complaints, Re-evaluation by your physician. Problem is new. Symptoms have improved. la1
[2019-07-28 21:43] VITALS: BP 149/108; TEMP 98; O2SAT 100
--- NOTE | 2019-07-29 07:25 | RAD REPORT ---
EXAM DESCRIPTION: RAD - Chest Pa And Lat (2 Views) - 07/28/2019 8:49 pm CLINICAL HISTORY: COUGH COMPARISON: Portable January 2019 TECHNIQUE: Frontal and lateral views of the chest were obtained. FINDINGS: The lungs are clear. Heart size is normal and central vasculature is within normal limit s. No pleural effusion or pneumothorax seen. No acute bony finding noted. No aortic abnormality. No significant change comparison. IMPRESSION: No acute cardiopulmonary process.
--- NOTE | 2019-07-29 07:29 | EKG ---
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
== END 2019-07-28 21:33 | disposition home or self-care (01) ==
LOC: ER 18:31
DX: J20.9 Acute bronchitis, unspecified (principal)
CPT/HCPCS: 71046; 87804; 93005; 99284

== ENCOUNTER 2019-08-01 14:33 | Emergency (ER) | payer SELFPAY ==
[2019-08-01] MEDS ORDERED: ACETAMINOPHEN 325 MG TABLET ONE (15:37)
[2019-08-01] MEDS ORDERED: ONDANSETRON 4 MG (ODT) TAB ONE (15:37)
--- NOTE | 2019-08-01 15:39 | RAD REPORT ---
EXAM DESCRIPTION: RAD - Chest Pa And Lat (2 Views) - 08/01/2019 3:21 pm CLINICAL HISTORY: Cough;Hemoptysis COMPARISON: Two view chest July 27 TECHNIQUE: Frontal and lateral views of the chest were obtained. FINDINGS: The lungs are clear. Heart size is normal and central vasculature is within normal limit s. No pleural effusion or pneumothorax seen. No acute bony finding noted. No aortic abnormality. IMPRESSION: No acute cardiopulmonary process.
--- NOTE | 2019-08-01 16:14 | ER ---
Nurse's Notes [facility] Name: Shila Taylor Age: 34 yrs Sex: Female : 1985 Arrival Date: 08/01/2019 Time: 14:38 Bed 19 Private MD: Diagnosis: Acute bronchitis, unspecified Presentation: 07/31 14:47 Chief complaint: Patient states: was seen here thurs and diagnosed with bronchitis, is iw feeling worse and today she coughed up blood about 30 minutes, happened a couple times usually when she has a deep cough , fever yesterday. Coronavirus screen: The patient has NOT traveled to a country currently being monitored by the [facility] within the last 14 days. Proceed with normal triage procedures. The patient has NOT had contact with any known and/or suspected case of coronavirus. Proceed with normal triage procedures. Ebola Screen: Patient negative for fever greater than or equal to 101.5 degrees Fahrenheit, and additional compatible Ebola Virus Disease symptoms Patient denies exposure to infectious person. Patient denies travel to an Ebola-affected area in the 21 days before illness onset. No symptoms or risks identified at this time. Initial Sepsis Screen: Does the patient meet any 2 criteria? No. Patient's initial sepsis screen is negative. Does the patient have a suspected source of infection? No. Patient's initial sepsis screen is negative. Risk Assessment: Do you want to hurt yourself or someone else? Patient reports no desire to harm self or others. 14:47 Method Of Arrival: Ambulatory iw 14:47 Acuity: LEELA 3 iw 15:19 Onset of symptoms was August 01, 2019. 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 - Social history:: Smoking status: Patient denies any tobacco usage or history of. Screenin:09 Abuse screen: Denies threats or abuse. Denies injuries from another. Nutritional ca1 screening: No deficits noted. Tuberculosis screening: No symptoms or risk factors identified. Fall Risk None identified. Assessment: 15:09 General: Appears in no apparent distress. comfortable, Behavior is calm, cooperative, ca1 appropriate for age. Pain: Denies pain. Neuro: Level of Consciousness is awake, alert, obeys commands, Oriented to person, place, time, situation, Appropriate for age. Cardiovascular: Heart tones S1 S2 present Capillary refill < 3 seconds Patient's skin is warm and dry. Pulses are all present. Respiratory: Reports cough that is pain with cough Airway is patent Respiratory effort is even, unlabored, Respiratory pattern is regular, symmetrical. GI: Abdomen is round non-distended, Bowel sounds present X 4 quads. Abd is soft and non tender X 4 quads. Reports vomiting, with blood. : No signs and/or symptoms were reported regarding the genitourinary system. EENT: No signs and/or symptoms were reported regarding the EENT system. Derm: Skin is intact, is healthy with good turgor, Skin is pink, warm \T\ dry. Musculoskeletal: Circulation, motion, and sensation intact. Capillary refill < 3 seconds. 16:05 Reassessment: Patient appears in no apparent distress at this time. Patient and/or ca1 family updated on plan of care and expected duration. Pain level reassessed. Patient is alert, oriented x 3, equal unlabored respirations, skin warm/dry/pink. Vital Signs: 14:47 BP 151 / 114; Pulse 93; Resp 16; Temp 98.1; Pulse Ox 100% on R/A; Weight 99.79 kg; iw Height 5 ft. 7 in. (170.18 cm); Pain 7/10; 16:05 BP 130 / 84; Pulse 81; Resp 17 S; Pulse Ox 100% on R/A; ca1 16:15 Temp 99.3(O); ca1 14:47 Body Mass Index 34.46 (99.79 kg, 170.18 cm) iw ED Course: 14:38 Patient arrived in ED. fj1 14:49 Triage completed. iw 14:50 Arm band placed on. iw 14:52 Barry Santacruz PA is PHCP. cp 14:52 Cali Fernandez MD is Attending Physician. cp 14:56 Kelsey Rios RN is Primary Nurse. ca1 15:09 No provider procedures requiring assistance completed. ca1 15:19 XRAY Chest Pa And Lat (2 Views) In Process Unspecified. EDMS 15:20 Patient has correct armband on for positive identification. Pulse ox on. NIBP on. Warm ca1 blanket given. 16:16 Patient did not have IV access during this emergency room visit. ca1 Administered Medications: 15:25 Drug: Tylenol 650 mg Route: PO; ca1 16:17 Follow up: Response: No adverse reaction ca1 15:27 Drug: Zofran (Ondansetron) 4 mg Route: PO; ca1 16:17 Follow up: Response: No adverse reaction; Nausea is decreased; Vomiting decreased ca1 16:15 Drug: Albuterol 2.5 mg Route: Inhalation; ca1 16:15 Drug: AtroVENT Aerosol 0.5 mg Route: Inhalation; ca1 Outcome: 16:13 Discharge ordered by MD. cp 16:30 Discharged to home ambulatory. ca1 16:30 Condition: stable 16:30 Discharge instructions given to patient, Instructed on discharge instructions, follow up and referral plans. medication usage, Demonstrated understanding of instructions, follow-up care, medications, Prescriptions given X 2. 16:31 Patient left the ED. ca1 Signatures: Dispatcher [employer] EDMS Herlinda King RN RN iw Barry Santacruz PA PA Kelsey Frazier RN RN ca1 Andry Conklin fj1 Corrections: (The following items were deleted from the chart) 14:50 14:47 Pulse 93bpm; Resp 16bpm; Pulse Ox 100% RA; Temp 98.1F; 99.79 kg; Height 5 ft. 7 iw in.; BMI: 34.4; Pain 7/10; iw
--- NOTE | 2019-08-01 16:15 | EDPHYS ---
Physician Documentation [facility] Name: Shila Taylor Age: 34 yrs Sex: Female : 1985 Arrival Date: 08/01/2019 Time: 14:38 Bed 19 Private MD: ED Physician Cali Fernandez HPI: 07/31 15:09 This 34 yrs old Female presents to ER via Ambulatory with complaints of cp BRONCHITITS, VOMITING AND COUGHING UP BLOOD. 15:10 The patient or guardian reports cough, with productive sputum, that is purulent, with cp blood today. Onset: The symptoms/episode began/occurred 2 week(s) ago. The patient has been recently seen at the [facility] Emergency Department, for similar complaints X-rays were performed, given prescription for Medrol dose pack and Tessalon pearles. 15:10 Associated signs and symptoms: Pertinent positives: vomiting, Pertinent negatives: cp chest pain, fever. Severity of symptoms: in the emergency department the symptoms are unchanged despite home interventions. 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 - Social history:: Smoking status: Patient denies any tobacco usage or history of. ROS: 15:15 Constitutional: Negative for body aches, chills, fever, poor PO intake. cp 15:15 Eyes: Negative for injury, pain, redness, and discharge. cp 15:15 ENT: Negative for drainage from ear(s), ear pain, sore throat, difficulty swallowing, difficulty handling secretions. 15:15 Cardiovascular: Negative for chest pain, edema, palpitations. 15:15 Respiratory: Positive for cough, hemoptysis, Negative for shortness of breath, wheezing. 15:15 Abdomen/GI: Negative for abdominal pain, diarrhea, constipation. 15:15 Back: Negative for radiated pain. 15:15 Skin: Negative for rash. 15:15 Neuro: Negative for altered mental status, headache, weakness. 15:15 All other systems are negative. Exam: 15:20 Constitutional: The patient appears in no acute distress, alert, awake, non-toxic, well cp developed, well nourished. 15:20 Head/Face: Normocephalic, atraumatic. cp 15:20 Eyes: Periorbital structures: appear normal, Conjunctiva: normal, no exudate, no injection, Lids and lashes: appear normal, bilaterally. 15:20 ENT: External ear(s): are unremarkable, Ear canal(s): are normal, clear, TM's: bulging, is not appreciated, bilaterally, dullness, bilaterally, erythema, is not appreciated, bilaterally, Nose: is normal, Mouth: Lips: moist, Oral mucosa: moist, Posterior pharynx: Airway: no evidence of obstruction, patent, Tonsils: no enlargement, no exudate, Uvula: midline, erythema, that is mild, exudate, is not appreciated. 15:20 Neck: ROM/movement: is normal, is supple, no meningismus, no nuchal rigidity, Lymph nodes: no appreciated lymphadenopathy. 15:20 Chest/axilla: Inspection: normal, Palpation: is normal, no crepitus, no tenderness. 15:20 Cardiovascular: Rate: normal, Rhythm: regular. 15:20 Respiratory: the patient does not display signs of respiratory distress, Respirations: normal, no use of accessory muscles, no retractions, labored breathing, is not present, Breath sounds: bronchial sounds, that are mild, are heard diffusely, decreased breath sounds, are not appreciated, + upper airway congestion. wheezing: is not appreciated. 15:20 Abdomen/GI: Exam negative for discomfort, distension, guarding, Inspection: abdomen appears normal. Vital Signs: 14:47 BP 151 / 114; Pulse 93; Resp 16; Temp 98.1; Pulse Ox 100% on R/A; Weight 99.79 kg; iw Height 5 ft. 7 in. (170.18 cm); Pain 7/10; 16:05 BP 130 / 84; Pulse 81; Resp 17 S; Pulse Ox 100% on R/A; ca1 16:15 Temp 99.3(O); ca1 14:47 Body Mass Index 34.46 (99.79 kg, 170.18 cm) iw MDM: 14:59 Patient medically screened. cp 15:30 Differential diagnosis: bronchitis, flu, URI, pneumonia. cp 16:08 Test interpretation: by ED physician or midlevel provider: plain radiologic studies, cp chest xray negative for infiltrates or focal pneumonia. 16:12 Data reviewed: vital signs, nurses notes, radiologic studies, plain films. cp 16:12 Antibiotic administration: The patient is discharged and will get outpatient cp antibiotics, Zithromax. Counseling: I had a detailed discussion with the patient and/or guardian regarding: the historical points, exam findings, and any diagnostic results supporting the discharge/admit diagnosis, radiology results, the need for outpatient follow up, a family practitioner, to return to the emergency department if symptoms worsen or persist or if there are any questions or concerns that arise at home. 07/31 15:06 Order name: XRAY Chest Pa And Lat (2 Views) cp 07/31 15:33 Order name: Urine Dipstick--Ancillary (enter results) bd 07/31 15:33 Order name: Urine --Ancillary (enter results) bd 07/31 15:06 Order name: Urine Dipstick-Ancillary (obtain specimen); Complete Time: 15:35 cp 07/31 15:06 Order name: Urine Test (obtain specimen); Complete Time: 15:35 cp Administered Medications: 15:25 Drug: Tylenol 650 mg Route: PO; ca1 16:17 Follow up: Response: No adverse reaction ca1 15:27 Drug: Zofran (Ondansetron) 4 mg Route: PO; ca1 16:17 Follow up: Response: No adverse reaction; Nausea is decreased; Vomiting decreased ca1 16:15 Drug: Albuterol 2.5 mg Route: Inhalation; ca1 16:15 Drug: AtroVENT Aerosol 0.5 mg Route: Inhalation; ca1 Disposition: 17:07 Co-signature as Attending Physician, Cali Fernandez MD. rn Disposition: 08/01/19 16:13 Discharged to Home. Impression: Acute bronchitis, unspecified. - Condition is Stable. - Discharge Instructions: Acute Bronchitis, Adult. - Prescriptions for Zithromax Z- Jorden 250 mg Oral Tablet - take 1 tablet by ORAL route as directed for 5 days Day 1 - take two (2) tablets one time. Day 2, 3, 4 , 5 take one (1) tablet once daily.; 6 tablet. Albuterol Sulfate 90 mcg/actuation - inhale 1-2 puff by INHALATION route every 4-6 hours; 1 Inhaler. - Medication Reconciliation Form, Thank You Letter, Antibiotic Education, Prescription Opioid Use, Work release form form. - Follow up: Private Physician; When: 2 - 3 days; Reason: Worsening of condition. - Problem is an ongoing problem. - Symptoms have improved. Signatures: Dispatcher [employer] EDGA Herlinda King RN RN iw Cali Fernandez MD MD rn Page, Corey, PA PA cp Kelsey Rios RN RN ca1 Corrections: (The following items were deleted from the chart) 15:13 15:08 Influenza Screen (A \T\ B)+BA.LAB.BRZ ordered. EDGA EDGA 15:13 15:08 Group A Streptococcus Rapid Sc+BA.LAB.BRZ ordered. EDGA EDGA 16:31 16:13 08/01/2019 16:13 Discharged to Home. Impression: Acute bronchitis, unspecified. ca1 Condition is Stable. Forms are Medication Reconciliation Form, Thank You Letter, Antibiotic Education, Prescription Opioid Use. Follow up: Private Physician; When: 2 - 3 days; Reason: Worsening of condition. Problem is an ongoing problem. Symptoms have improved. cp
[2019-08-01] MEDS ORDERED: IPRATROPIUM BROM 0.5MG/2.5ML ONE (16:16)
[2019-08-01] MEDS ORDERED: ALBUTEROL 2.5 MG/3 ML NEB SOL ONE (16:16)
[2019-08-01 16:57] VITALS: O2SAT 100
[2019-08-01 16:58] VITALS: BP 130/84
[2019-08-01 16:59] VITALS: TEMP 99.3
[2019-08-01 16:59] LABS: Urine Blood TRACE (NEG); Urine Glucose NEGATIVE (NEG); Urine Protein NEGATIVE (NEG); Urine pH 7.5 (5.0-7.0)
== END 2019-08-01 16:31 | disposition home or self-care (01) ==
LOC: ER 14:33
DX: J20.9 Acute bronchitis, unspecified (principal)
CPT/HCPCS: 71046; 81003; 81025; 99284

== ENCOUNTER 2021-01-21 11:25 | Emergency (ER) | payer SELFPAY ==
--- NOTE | 2021-01-21 15:14 | EDPHYS ---
Physician Documentation [facility] Name: Shila Taylor Age: 35 yrs Sex: Female : 1985 Arrival Date: 01/21/2021 Time: 11:27 Bed DX1 Private MD: ED Physician Barry Lorenz HPI: 01/21 21:29 This 35 yrs old Female presents to ER via Ambulatory with complaints of Sore kb Throat, Fever, Difficulty Swallowing. 21:29 The patient presents with sore throat. The patient describes throat pain as constant. kb Onset: The symptoms/episode began/occurred 2 day(s) ago. Severity of symptoms: At their worst the symptoms were moderate, in the emergency department the symptoms are unchanged. Modifying factors: The symptoms are alleviated by nothing, the symptoms are aggravated by swallowing, Patient's oral intake status: good. Associated signs and symptoms: Pertinent positives: fever, Sore throat. The patient has not experienced similar symptoms in the past. The patient has not recently seen a physician. Pt reports fever and sore throat that started yesterday. states it feels like strep. Historical: - Allergies: 12:16 No Known Allergies; ll1 - PMHx: 12:16 Chronic pain; ll1 - PSHx: 12:16 section; ll1 - Immunization history:: Client reports receiving the 2nd dose of the Covid vaccine, Flu vaccine status is unknown. - Social history:: Smoking status: Patient denies any tobacco usage or history of. ROS: 21:29 Respiratory: Negative for shortness of breath, cough, wheezing, and pleuritic chest kb pain. 21:29 Constitutional: Positive for fever. 21:29 ENT: Positive for sore throat. 21:29 All other systems are negative. Exam: 21:29 Constitutional: This is a well developed, well nourished patient who is awake, alert, kb and in no acute distress. Head/Face: Normocephalic, atraumatic. Cardiovascular: Regular rate and rhythm with a normal S1 and S2. No gallops, murmurs, or rubs. No pulse deficits. Respiratory: Respirations even and unlabored. No increased work of breathing, no retractions or nasal flaring. Skin: Warm, dry with normal turgor. Normal color. MS/ Extremity: Pulses equal, no cyanosis. Neurovascular intact. Full, normal range of motion. Neuro: Awake and alert, GCS 15, oriented to person, place, time, and situation. Moves all extremities. Normal gait. Psych: Awake, alert, with orientation to person, place and time. Behavior, mood, and affect are within normal limits. 21:29 ENT: Posterior pharynx: Airway: normal, no evidence of obstruction, Tonsils: are normal in appearance, Uvula: normal, midline, swelling, is not appreciated, erythema, that is mild. Vital Signs: 12:14 Resp 17; Temp 97.5; Weight 99.79 kg; Height 5 ft. 7 in. (170.18 cm); Pain 4/10; ll1 12:18 BP 142 / 93; Pulse 86; Pulse Ox 98% ; ll1 12:14 Body Mass Index 34.46 (99.79 kg, 170.18 cm) ll1 MDM: 15:05 Patient medically screened. kb 15:13 Data reviewed: vital signs, nurses notes. Data interpreted: Pulse oximetry: on room air kb is 98 %. Interpretation: normal. Counseling: I had a detailed discussion with the patient and/or guardian regarding: the historical points, exam findings, and any diagnostic results supporting the discharge/admit diagnosis, lab results, the need for outpatient follow up, a family practitioner, to return to the emergency department if symptoms worsen or persist or if there are any questions or concerns that arise at home. 01/21 12:18 Order name: Strep ll1 01/21 12:18 Order name: Flu 1 01/21 12:18 Order name: Group A Streptococcus Rapid Sc; Complete Time: 15:05 EDWI 01/21 12:18 Order name: Influenza Screen (A ; Complete Time: 15:12 EDWI 01/21 14:51 Order name: Throat Culture EDWI Administered Medications: No medications were administered Disposition: 01/22 08:43 Co-signature as Attending Physician, Barry Lorenz MD I agree with the assessment and evelyn plan of care. Disposition Summary: 01/21/21 15:12 Discharge Ordered Location: Home kb Condition: Stable kb Diagnosis - Acute pharyngitis, unspecified kb Followup: kb - With: Emergency Department - When: As needed - Reason: Worsening of condition Followup: kb - With: Private Physician - When: 2 - 3 days - Reason: Recheck today's complaints, Continuance of care, Re-evaluation by your physician Discharge Instructions: - Discharge Summary Sheet kb - Pharyngitis, [id number] kb Forms: - Medication Reconciliation Form kb - Thank You Letter kb - Antibiotic Education kb - Prescription Opioid Use kb Signatures: Dispatcher [employer] EDAlyssia Jules, NORBERTO PICKETT-Barry Hilario MD MD cha Lewis, Lynsay RN RN ll1
--- NOTE | 2021-01-21 15:14 | ER ---
Nurse's Notes [facility] Name: Shila Taylor Age: 35 yrs Sex: Female : 1985 Arrival Date: 01/21/2021 Time: 11:27 Bed DX1 Private MD: Diagnosis: Acute pharyngitis, unspecified Presentation: 01/21 12:14 Chief complaint: Patient states: Sore throat, fever for 2 days. Nasal pressure and ll1 drainage. Coronavirus screen: Vaccine status: Patient reports receiving the 2nd dose of the covid vaccine. Client denies travel out of the [place] in the last 14 days. congestion, fatigue, fever, headache, sore throat, Client presents with at least one sign or symptom that may indicate coronavirus-19. Standard/surgical mask placed on the client. Ebola Screen: Patient denies travel to an Ebola-affected area in the 21 days before illness onset. Initial Sepsis Screen: Does the patient meet any 2 criteria? No. Patient's initial sepsis screen is negative. Does the patient have a suspected source of infection? Yes: Other: sore throat. Risk Assessment: Do you want to hurt yourself or someone else? Patient reports no desire to harm self or others. Onset of symptoms was January 20, 2021. 12:14 Method Of Arrival: Ambulatory ll1 12:14 Acuity: LEELA 4 ll1 Historical: - Allergies: 12:16 No Known Allergies; ll1 - PMHx: 12:16 Chronic pain; ll1 - PSHx: 12:16 section; ll1 - Immunization history:: Client reports receiving the 2nd dose of the Covid vaccine, Flu vaccine status is unknown. - Social history:: Smoking status: Patient denies any tobacco usage or history of. Screenin:11 Abuse screen: Denies threats or abuse. Denies injuries from another. Nutritional ss screening: No deficits noted. Tuberculosis screening: Never had TB. Fall Risk None identified. Assessment: 15:11 General: Appears in no apparent distress. comfortable, Behavior is calm, cooperative. ss Pain: Complains of pain in throat Pain currently is 4 out of 10 on a pain scale. Neuro: Level of Consciousness is awake, alert, obeys commands, Oriented to person, place, time, situation. Cardiovascular: Capillary refill < 3 seconds is brisk in bilateral fingers. Respiratory: Airway is patent Respiratory effort is even, unlabored, Respiratory pattern is regular, symmetrical. GI: No signs and/or symptoms were reported involving the gastrointestinal system. EENT: Oral mucosa is moist. Throat is clear. Vital Signs: 12:14 Resp 17; Temp 97.5; Weight 99.79 kg; Height 5 ft. 7 in. (170.18 cm); Pain 4/10; ll1 12:18 BP 142 / 93; Pulse 86; Pulse Ox 98% ; ll1 12:14 Body Mass Index 34.46 (99.79 kg, 170.18 cm) ll1 ED Course: 11:27 Patient arrived in ED. as 12:16 Triage completed. ll1 12:16 Arm band placed on. ll1 15:05 Alyssia Waters [facility]-C [facility] kb 15:05 Barry Lorenz MD is Attending Physician. kb 15:08 Rosemary Pillai, MAMI is Primary Nurse. ss 15:11 Patient has correct armband on for positive identification. Bed in low position. Call ss light in reach. 15:11 No provider procedures requiring assistance completed. Patient did not have IV access ss during this emergency room visit. Administered Medications: No medications were administered Outcome: 15:11 Discharged to home ambulatory. ss 15:11 Condition: good 15:11 Discharge instructions given to patient, Instructed on discharge instructions, follow up and referral plans. Demonstrated understanding of instructions, follow-up care. 15:12 Discharge ordered by . kb 15:14 Patient left the ED. ss Signatures: Alyssia Waters FNP-C FNP-Stefanie Rivas as Rosemary Pillai, MAMI BOLAÑOS Laura Thakkar RN RN ll1
[2021-01-21 15:22] VITALS: TEMP 97.5
[2021-01-21 15:23] VITALS: BP 142/93; O2SAT 98
== END 2021-01-21 15:14 | disposition home or self-care (01) ==
LOC: ER 11:25
DX: J02.9 Acute pharyngitis, unspecified (principal)
CPT/HCPCS: 87070; 87081; 87804; 99281

== ENCOUNTER 2021-09-03 13:30 | Emergency (ER) | payer OTHER, SELFPAY ==
--- OUTSIDE RECORDS SUMMARY | 2021-09-03 13:33 | XMS REPORT | Continuity of Care Document ---
:1985 Author Organization [facility] t Address [address] [place] [address] Care Team Providers Name Role Phone Jasmine TONY Primary Care Physician Unavailable Shane CHAPA Attending Clinician SHANE Attending Clinician Unavailable Advance Directives Directive Decision Effective Termination Comments Source Date Date Healthcare Agents on N/A [facility] ersity FileNameRelationshipHealthcare of [place] Agent Medical RelationshipCommunicationCape [facility] and [facility] Care [phone] (Mobile) Problems Condition Condition Condition Status Onset Resolution Last Treating Co mments Source Name Details Category Date Date Treatment Clinician Date Menorrhagi Menorrhagi Disease Active U nivers a with a with 9-25 ity of irregular [facility] 00 [facility] Tumors of Tumors of Disease Active Uni vers body of body of 9-25 ity of uterus, uterus, 00:00: [place] delivered delivered [facility] Allergies, Adverse Reactions, Alerts Allergy Allergy Status Severity Reaction(s) Onset Inactive Treating Comm ents Source Name Type Date Date Clinician NO KNOWN Drug Active Univers ALLERGIE Class ity of S [facility] Social History Social Habit Start Date Stop Date Quantity Comments Source Exposure to Not sure University of SARS-CoV-2 [facility] (event) Branch Alcohol intake 2021-07-03 2021-07-03 Current University of 00:00:00 00:00:00 non-drinker of [facility] alcohol [place] (finding) Tobacco use and 2018-02-08 2018-02-08 Never used Universit y of exposure 00:00:00 00:00:00 [facility] Sex Assigned At [birth year] Universit y of 00:00:00 00:00:00 [facility] Smoking Status Start Date Stop Date Source Never smoker [facility] Medications Ordered Filled Start Stop Current Ordering Indication Dosage Frequency Signature Comments Components Source Medication Medication Date Date Medication? Clinician (SIG) Name Name SERTraline Yes 25mg Take 25 mg U nivers (ZOLOFT) 25 2-16 by mouth ity of mg tablet 10:51: daily. [address] buprenorphi Yes 1{film} Place 1 Univers ne-naloxone 2-16 Film under it y of (SUBOXONE) 10:51: the [place] 2-0.5 mg 30 tongue. Medical sublingual Branch film bisoprolol Yes 10mg Take 10 mg U nivers 10 mg 2-16 by mouth ity of tablet 10:51: daily. [address] Vital Signs Vital Name Observation Time Observation Value Comments Source Systolic blood 2021-07-03 16:49:00 157 mm[Hg] Univer sity of pressure [facility] Diastolic blood 2021-07-03 16:49:00 105 mm[Hg] Unive rsity of [facility] Heart rate 2021-07-03 16:49:00 68 /min [facility] Body temperature 2021-07-03 16:49:00 [facility].72 [facility] height 2021-07-03 16:49:00 170.2 cm [facility] Body weight 2021-07-03 16:49:00 120.475 kg [facility] BMI 2021-07-03 16:49:00 41.60 kg/m2 [facility] Oxygen saturation in 2021-07-03 16:49:00 97 /min [facility] Arterial blood by [facility] Pulse oximetry Branch Procedures This patient has no known procedures. Encounters Start End Encounter Admission Attending Care Care Encounter Source Date/Time Date/Time Type Type Clinicians Facility Department ID 2021-07-03 2021-07-03 Office LUIS Cage [id number] Univers 10:45:00 11:17:27 [id number] AT [phone] Ny adarsh MCLAUGHLIN [address] [place] [address] 2021-07-03 2021-07-03 Outpatient R SHANE [facility] [id number] Univers 10:45:00 11:17:27 LADY lugo of [facility] Results This patient has no known results.
[2021-09-03 14:39] LABS: Urine Blood Trace-intact (Negative); Urine Glucose Negative (Negative); Urine Protein Negative (Negative); Urine Specific Gravity >=1.030 (1.005-1.030)
[2021-09-03 14:54] LABS: Absolute Lymphocytes (CBC) 1.5 K/uL (0.7-4.9); Hematocrit 33.1 % (36.0-45.0); MPV 8.8 fL (7.6-11.3); RBC Red Blood Cell Count 3.97 M/uL (3.86-4.86)
[2021-09-03 15:09] LABS: ALT/SGPT 28 U/L (12-78); AST/SGOT 18 U/L (15-37); Albumin 3.7 g/dL (3.4-5.0); Alkaline Phosphatase 87 U/L (45-117); BUN Blood Urea Nitrogen 10 mg/dL (7-18); Bicarbonate 28 mmol/L (21-32); Bilirubin Total 0.5 mg/dL (0.2-1.0); Glucose Level 102 mg/dL (74-106); Lipase 47 U/L (73-393); Potassium 3.5 mmol/L (3.5-5.1); Protein, Total 7.9 g/dL (6.4-8.2); Sodium Level 138 mmol/L (136-145)
--- NOTE | 2021-09-03 15:44 | RAD REPORT ---
EXAM DESCRIPTION: CT - Abdomen Pelvis W Contrast - 09/03/2021 3:30 pm CLINICAL HISTORY: RLQ abdominal pain COMPARISON: No comparisons TECHNIQUE: Biphasic, helical CT imaging of the abdomen and pelvis was performed following 100 ml non -ionic IV contrast. No oral contrast administered. All CT scans are performed using dose optimization technique as appropriate and may include automated exposure control or mA/KV adjustment according to patient size. FINDINGS: No suspicious findings in the lung bases. The liver, spleen, and pancreas show no suspicious findings. Gallbladder is distended but not dilated . Small gallstones are suspected in the fundus and possibly near the neck of the gallbladder. No wall thickening or edema. No biliary tree dilatation. Symmetric renal function is seen with no hydronephrosis or suspicious renal mass. No pyelonephritis o r acute parenchymal process. No bladder abnormalities. No adrenal abnormalities. Uterus and ovaries s how no suspicious findings. No dilated bowel loops or bowel wall thickening. No appendicitis findings. No free air, free fluid or inflammatory stranding. No hernia, mass or bulky lymphadenopathy. No suspicious bony findings. No abdominal wall mass, hernia or acute finding seen. IMPRESSION: Contrast enhanced CT abdomen and pelvis showing no acute or emergent finding. Cholelithiasis is evident but acute cholecystitis is not suspected.
[2021-09-03] MEDS ORDERED: NA CHLORIDE 0.9% 1,000 ML ONE (16:24)
[2021-09-03] MEDS ORDERED: ONDANSETRON 4 MG/2 ML VIAL ONE (16:24)
--- NOTE | 2021-09-03 16:33 | ER ---
Nurse's Notes [facility] Name: Shila Taylor Age: 36 yrs Sex: Female : 1985 Arrival Date: 09/03/2021 Time: 13:31 Bed 15 Private MD: Diagnosis: Abdominal pain, unspecified;Cholelithiasis Presentation: 09/03 14:19 Chief complaint: Patient states: RLQ pain since Thursday, fever and vomiting. Coronavirus iw screen: At this time, the client does not indicate any symptoms associated with coronavirus-19. Ebola Screen: Patient negative for fever greater than or equal to 101.5 degrees Fahrenheit, and additional compatible Ebola Virus Disease symptoms Patient denies exposure to infectious person. Patient denies travel to an Ebola-affected area in the 21 days before illness onset. No symptoms or risks identified at this time. Initial Sepsis Screen: Does the patient meet any 2 criteria? No. Patient's initial sepsis screen is negative. Does the patient have a suspected source of infection? No. Patient's initial sepsis screen is negative. Risk Assessment: Do you want to hurt yourself or someone else? Patient reports no desire to harm self or others. Onset of symptoms was September 01, 2021. 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 - Social history:: Smoking status: Patient denies any tobacco usage or history of. Screenin:10 Abuse screen: Denies threats or abuse. Nutritional screening: No deficits noted. ll1 Tuberculosis screening: No symptoms or risk factors identified. Fall Risk Total Anderson Fall Scale indicates No Risk (0-24 pts). Assessment: 16:11 General: Appears uncomfortable, Behavior is cooperative, appropriate for age. Pain: ll1 Complains of pain in R abd Quality of pain is described as aching, crampy. GI: Reports lower abdominal pain, nausea, vomiting. 16:47 Reassessment: No changes from previously documented assessment. Patient and/or family ll1 updated on plan of care and expected duration. Pain level reassessed. Patient is alert, oriented x 3, equal unlabored respirations, skin warm/dry/pink. 16:48 GI: Bowel sounds present X 4 quads. Abd is soft and non tender X 4 quads. ll1 Vital Signs: 14:19 BP 123 / 89; Pulse 65; Resp 16; Temp 97.9; Pulse Ox 96% on R/A; Weight 118.84 kg; iw Height 5 ft. 7 in. (170.18 cm); Pain 6/10; 16:47 BP 127 / 84; Pulse 71; Resp 16; Pain 6/10; ll1 14:19 Body Mass Index 41.03 (118.84 kg, 170.18 cm) iw ED Course: 13:31 Patient arrived in ED. am2 14:05 Zan Holly, FELLING MACHINE OPERATOR is PHCP. pm1 14:05 Hernandez Hook MD is Attending Physician. pm1 14:20 Triage completed. iw 14:21 Arm band placed on. iw 15:31 CT Abd/Pelvis - IV Contrast Only In Process Unspecified. EDMS 16:10 Laura Thakkar, MAMI is Primary Nurse. ll1 16:10 Patient placed in an exam room, on a stretcher. ll1 16:10 Patient has correct armband on for positive identification. Bed in low position. Call ll1 light in reach. Side rails up X 1. Pulse ox on. NIBP on. 16:47 No provider procedures requiring assistance completed. IV discontinued, intact, ll1 bleeding controlled, No redness/swelling at site. Pressure dressing applied. Administered Medications: 16:29 Not Given (Patient Refused): NS 0.9% 1000 ml IV at 1 bolus Per protocol; 1000 mL bolus ll1 16:29 Not Given (Patient Refused): Zofran (Ondansetron) 4 mg IVP once; over 2 minutes ll1 Outcome: 16:32 Discharge ordered by . pm1 16:48 Discharged to home ambulatory. ll1 16:48 Condition: stable 16:48 Discharge instructions given to patient, Instructed on discharge instructions, follow up and referral plans. medication usage, Demonstrated understanding of instructions, follow-up care, medications, Prescriptions given X 1. 16:48 Patient left the ED. ll1 Signatures: Dispatcher [employer] Herlinda Corona, MAMI BOLAÑOS iw Zan Holly, FELLING MACHINE OPERATOR FELLING MACHINE OPERATOR pm1 Ashly Bauman am2 Laura Thakkar RN RN ll1
--- NOTE | 2021-09-03 16:33 | EDPHYS ---
Physician Documentation [facility] Name: Shila Taylor Age: 36 yrs Sex: Female : 1985 Arrival Date: 09/03/2021 Time: 13:31 Bed 15 Private MD: ED Physician Hernandez Hook HPI: 09/03 14:17 This 36 yrs old Female presents to ER via Ambulatory with complaints of Abdominal Pain pm1 - RLQ, Fever, Nausea/Vomiting. 14:17 The patient presents with abdominal pain right lower quadrant. Onset: The pm1 symptoms/episode began/occurred 2 day(s) ago. The symptoms do not radiate. Associated signs and symptoms: Pertinent positives: nausea and vomiting, fever, Pertinent negatives: chest pain, constipation, diarrhea, dysuria, shortness of breath. The symptoms are described as sharp. Modifying factors: The symptoms are alleviated by nothing, the symptoms are aggravated by nothing. Severity of pain: in the emergency department the pain is actually worse. The patient has not experienced similar symptoms in the past. The patient has not recently seen a physician. 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 - Social history:: Smoking status: Patient denies any tobacco usage or history of. ROS: 14:17 Cardiovascular: Negative for chest pain, palpitations, and edema, Respiratory: Negative pm1 for shortness of breath, cough, wheezing, and pleuritic chest pain. 14:17 Back: Negative for injury and pain, : Negative for injury, bleeding, discharge, and swelling, MS/Extremity: Negative for injury and deformity, Skin: Negative for injury, rash, and discoloration, Neuro: Negative for headache, weakness, numbness, tingling, and seizure. 14:17 Constitutional: Positive for fever, Negative for poor PO intake. 14:17 Abdomen/GI: Positive for abdominal pain, nausea and vomiting, of the right lower quadrant, Negative for diarrhea, constipation. 14:17 All other systems are negative. Exam: 14:17 Constitutional: This is a well developed, well nourished patient who is awake, alert, pm1 and in no acute distress. Head/Face: Normocephalic, atraumatic. 14:17 Back: No spinal tenderness. No costovertebral tenderness. Full range of motion. Skin: Warm, dry with normal turgor. Normal color with no rashes, no lesions, and no evidence of cellulitis. MS/ Extremity: Pulses equal, no cyanosis. Neurovascular intact. Full, normal range of motion. 14:17 Eyes: Exam is negative for acute changes, Pupils: no acute changes, Extraocular movements: no acute changes, Conjunctiva: no acute changes, no injection. 14:17 Cardiovascular: Rate: normal, Rhythm: regular, Pulses: no pulse deficits are appreciated, Heart sounds: normal. 14:17 Respiratory: Exam negative for acute changes, respiratory distress, shortness of breath, Breath sounds: are clear throughout. 14:17 Abdomen/GI: Inspection: abdomen appears normal, Palpation: abdomen is soft and non-tender, in all quadrants. 14:17 Neuro: Exam negative for acute changes, Orientation: is normal, Mentation: is normal, Motor: is normal, moves all fours. Vital Signs: 14:19 BP 123 / 89; Pulse 65; Resp 16; Temp 97.9; Pulse Ox 96% on R/A; Weight 118.84 kg; iw Height 5 ft. 7 in. (170.18 cm); Pain 6/10; 16:47 BP 127 / 84; Pulse 71; Resp 16; Pain 6/10; ll1 14:19 Body Mass Index 41.03 (118.84 kg, 170.18 cm) iw MDM: 15:28 Patient medically screened. pm1 16:31 Data reviewed: vital signs. Data interpreted: Pulse oximetry: on room air is 96 %. pm1 Interpretation: normal. Counseling: I had a detailed discussion with the patient and/or guardian regarding: the historical points, exam findings, and any diagnostic results supporting the discharge/admit diagnosis, lab results, radiology results, the need for outpatient follow up, a general surgeon, to return to the emergency department if symptoms worsen or persist or if there are any questions or concerns that arise at home. 09/03 14:17 Order name: CBC with Diff; Complete Time: 15:29 pm1 04/19 14:17 Order name: CMP; Complete Time: 15:29 pm1 09/03 14:17 Order name: Lipase; Complete Time: 15:29 pm1 09/03 14:17 Order name: CT Abd/Pelvis - IV Contrast Only; Complete Time: 15:55 pm1 09/03 14:39 Order name: Urine Dipstick-Ancillary; Complete Time: 15:29 EDNC 09/03 14:17 Order name: IV Saline Lock; Complete Time: 16:13 pm1 09/03 14:17 Order name: Labs collected and sent; Complete Time: 16:13 pm1 09/03 14:17 Order name: Urine Dipstick-Ancillary (obtain specimen); Complete Time: 16:29 pm1 09/03 14:17 Order name: Urine Test (obtain specimen); Complete Time: 16:29 pm1 Administered Medications: 16:29 Not Given (Patient Refused): NS 0.9% 1000 ml IV at 1 bolus Per protocol; 1000 mL bolus ll1 16:29 Not Given (Patient Refused): Zofran (Ondansetron) 4 mg IVP once; over 2 minutes ll1 Disposition Summary: 09/03/21 16:32 Discharge Ordered Location: Home pm1 Problem: new pm1 Symptoms: have improved pm1 Condition: Stable pm1 Diagnosis - Abdominal pain, unspecified pm1 - Cholelithiasis pm1 Followup: pm1 - With: Emergency Department - When: As needed - Reason: Worsening of condition Followup: pm1 - With: Private Physician - When: 2 - 3 days - Reason: Recheck today's complaints, Continuance of care, Re-evaluation by your physician Discharge Instructions: - Discharge Summary Sheet pm1 - Abdominal Pain, Adult pm1 - Cholelithiasis pm1 Forms: - Medication Reconciliation Form pm1 - Thank You Letter pm1 - Antibiotic Education pm1 - Prescription Opioid Use pm1 Prescriptions: - dicyclomine 20 mg Oral Tablet - take 1 tablet by ORAL route every 6 hours As needed; 20 tablet; Refills: 0, pm1 Product Selection Permitted Addendum: 09/05/2021 18:38 Co-signature as Attending Physician, Hernandez lopez Signatures: Dispatcher [employer] Herlinda Corona RN RN iw Marinas, Patrick, NP PCTS pm1 Hernandez Hook MD MD ma2 Laura Thakkar, RN RN ll1
[2021-09-03 20:38] VITALS: TEMP 97.9; O2SAT 96
[2021-09-03 20:40] VITALS: BP 127/84
== END 2021-09-03 16:48 | disposition home or self-care (01) ==
LOC: ER 13:30
DX: K80.20 Calculus of gallbladder without cholecystitis without obstruction (principal); G89.29 Other chronic pain
CPT/HCPCS: 85025; 36415; 81003; 83690; 80053; 74177; Q9967; J7030; J2405; 99283

== ENCOUNTER → 2023-06-11 | Emergency (ER) | payer OTHER, SELFPAY ==
[~2023-06-11] MED LIST changes: +NA CHLORIDE 0.9% 1,000 ML ONE; -Ringers Lactate 1,000 ML IV PRN; -Ringers Lactate 1,000 ML IV SCH
--- OUTSIDE RECORDS SUMMARY | 2023-06-11 00:06 | XMS REPORT | Continuity of Care Document ---
Author Name Unknown Address [address] [facility] [address] [place] [address] [facility] Address [address] 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 Name Role Phone TONYSHRUTI ForresterJOSE Ferraro Primary Care Physician Lady Seymour MD Attending Clinician LADY CAGE Attending Clinician Unavailable Doctor Unassigned, [place] Attending Clinician U navailable Payers Payer Name Policy Type Policy Number Effective Date Expirati on Date Source Problems Condition Name Condition Details Condition Category Status Onset Date Resolution Date Last Treatment Date Treating Clinician Comments Source Menorrhagi a with irregular cycle Menorrhagi a with irregular cycle Disease Active 02-09 00:00: 00 [facility] Tumors of body of uterus, delivered Tumors of body of uterus, delivered Disease Active 02-09 00:00: 00 [facility] Allergies, Adverse Reactions, Alerts Allergy Name Allergy Type Status Severity Reaction(s) Onset Date Inactive Date Treating Clinician Comments Source NO KNOWN ALLERGIE S Drug Class Active [facility] Social History Social Habit Start Date Stop Date Quantity Comments Source Exposure to SARS-CoV-2 (event) Not sure [facility] Alcohol intake 2021-07-03 00:00:00 2021-07-03 00:00:00 Current non-drinker of alcohol (finding) [facility] Tobacco use and exposure 2018-02-08 00:00:00 2018-02-08 00:00:00 Never used [facility] Sex Assigned At 1985 00:00:00 1985 00:00:00 [facility] Smoking Status Start Date Stop Date Source Never smoker [facility] Medications Ordered Medication Name Filled Medication Name Start Date Stop Date Current Medication? Ordering Clinician Indication Dosage Frequency Signature (SIG) Comments Components Source SERTraline (ZOLOFT) 25 mg tablet 07-03 10:51: 30 Yes 25mg Take 25 mg by mouth daily. [facility] buprenorphi ne-naloxone (SUBOXONE) 2-0.5 mg sublingual film 07-03 10:51: 30 Yes 1{film} Place 1 Film under the tongue. [facility] bisoprolol 10 mg tablet 07-03 10:51: 30 Yes 10mg Take 10 mg by mouth daily. [facility] Vital Signs Vital Name Observation Time Observation Value Comments S our Systolic blood pressure 2021-07-03 16:49:00 157 mm[Hg] [facility] Diastolic blood pressure 2021-07-03 16:49:00 105 mm[Hg] [facility] Heart rate 2021-07-03 16:49:00 68 /min [facility] Body temperature 2021-07-03 16:49:00 36.72 [place] [facility] Body height 2021-07-03 16:49:00 170.2 cm [facility] Body weight 2021-07-03 16:49:00 120.475 kg [facility] BMI 2021-07-03 16:49:00 41.60 kg/m2 [facility] Oxygen saturation in Arterial blood by Pulse oximetry 2021-07-03 16:49:00 97 /min [facility] Encounters Start Date/Time End Date/Time Encounter Type Admission Type Attending Clinicians Care Facility Care Department Encounter ID Source 2021-07-03 10:45:00 2021-07-03 11:17:27 Office Visit Lady Cage [facility] [id number] [facility] 2021-07-03 10:45:00 2021-07-03 11:17:27 Outpatient LADY HERRON [facility] [id number] [facility] 2021-07-03 10:45:00 2021-07-03 11:17:27 Outpatient LADY HERRON [facility] [id number] [facility] 2021-07-03 00:00:00 2021-07-03 00:00:00 Orders Only Doctor Unassigned, [place] [facility] 1..[id number] [facility] 2021-06-27 00:00:00 2021-06-27 00:00:00 Letter (Out) Lady Cage [facility] 1..[id number] [facility]
[2023-06-11 02:07] LABS: Absolute Lymphocytes (CBC) 1.2 K/uL (0.7-4.9); Hematocrit 34.7 % (36.0-45.0); Lymphocytes % 18.3 % (15.3-44.8); MCV 84.3 fL (80-100); MPV 8.7 fL (7.6-11.3); Platelets 255 thou/uL (152-406); RBC Red Blood Cell Count 4.11 M/uL (3.86-4.86)
[2023-06-11 02:08] LABS: Protime INR 1.05
[2023-06-11 02:19] LABS: SARS-CoV-2 Antigen Rapid Res Negative (Negative)
[2023-06-11 02:29] LABS: ALT/SGPT 41 U/L (13-56); AST/SGOT 25 U/L (15-37); Albumin 3.9 g/dL (3.4-5.0); Alkaline Phosphatase 83 U/L (45-117); BUN Blood Urea Nitrogen 10 mg/dL (7-18); Bicarbonate 27 mEq/L (21-32); Bilirubin Total 0.3 mg/dL (0.2-1.0); C-Reactive Protein 9.89 mg/L (<3.00); Glomerular Filtration Rate 92 ml/min (=/>90); Glucose Level 105 mg/dL (74-106); Magnesium 2.1 mg/dL (1.6-2.4); NT PRO-BNP 46 pg/mL (<125); Potassium 3.5 mEq/L (3.5-5.1); Protein, Total 8.1 g/dL (6.4-8.2); Sodium Level 137 mEq/L (136-145); Troponin High Sensitivity 4.8 pg/mL (<58.9)
[2023-06-11 02:30] LABS: Bilirubin Direct < 0.1 mg/dL (0-0.2); Bilirubin Indirect, Calculated ND mg/dL (0.2-0.8)
[2023-06-11 02:51] LABS: Specific Gravity 1.007 (1.005-1.030)
--- NOTE | 2023-06-11 04:20 | EDPHYS ---
Physician Documentation [facility] Name: Shila Taylor Age: 37 yrs Sex: Female : 1985 Arrival Date: 06/11/2023 Time: 00:03 Bed 4 Private MD: ED Physician Pedro Negron HPI: 06/11 00:49 This 37 yrs old Female presents to ER via Ambulatory with complaints of Fast sp4 heart rate. 00:49 PMH - Allergies: No Known Allergies; Home Meds: bisoprolol-hydrochlorothiazide oral; sp4 Suboxone sublingual PMHx: Chronic pain; PSHx: section;. 00:57 VCE study 7-year-old female with history of chronic pain on Suboxone 2 mg p.o. twice sp4 daily also history of hypertension amlodipine 5 mg p.o. twice daily as well. Presents with complaint of rapid heart rate at the rate of 120 today starting this evening associated with left-sided chest pain. Patient reports that she no longer on bisoprolol p.o.. Historical: - Allergies: 00:24 No Known Allergies; kl - Home Meds: 00:22 bisoprolol-hydrochlorothiazide 5-6.25 mg oral tablet [Active]; Suboxone 8 mg X 1 as kl needed [Active]; - PMHx: 00:22 Chronic pain; kl - PSHx: 00:22 section; kl - Immunization history:: Adult Immunizations not up to date. - Social history:: Smoking status: Patient denies any tobacco usage or history of. - Family history:: not pertinent. ROS: 00:57 Constitutional: Negative for fever, chills, and weight loss, positive for tachycardia sp4 and chest pain 00:57 All other systems are negative, Exam: 00:57 Constitutional: This is a well developed, well nourished patient who is awake, alert, sp4 and in no acute distress. Head/Face: Normocephalic, atraumatic. Eyes: Pupils equal round and reactive to light, extra-ocular motions intact. Lids and lashes normal. Conjunctiva and sclera are not injected. Cornea within normal limits. Periorbital areas with no swelling, redness, or edema. ENT: Nares patent. No nasal discharge, no septal abnormalities noted. Tympanic membranes are normal and external auditory canals are clear. Oropharynx with no redness, swelling, or masses, exudates, or evidence of obstruction, uvula midline. Mucous membranes moist. Neck: Trachea midline, no thyromegaly or masses palpated, and no cervical lymphadenopathy. Supple, full range of motion without nuchal rigidity, or vertebral point tenderness. Chest/axilla: Normal chest wall appearance and motion. Nontender with no deformity. No lesions are appreciated. Cardiovascular: Positive tachycardia , and rhythm with a normal S1 and S2. No gallops, murmurs, or rubs. Normal PMI, no JVD. No pulse deficits. Respiratory: Lungs have equal breath sounds bilaterally, clear to auscultation and percussion. No rales, rhonchi or wheezes noted. No increased work of breathing, no retractions or nasal flaring. Abdomen/GI: Soft, non-tender, with normal bowel sounds. No distension or tympany. No guarding or rebound. No evidence of tenderness throughout. Back: No spinal tenderness. No costovertebral tenderness. Skin: Warm, dry with normal turgor. Normal color with no rashes, no lesions, and no evidence of cellulitis. MS/ Extremity: Pulses equal, no cyanosis. Neurovascular intact. Full, normal range of motion. Neuro: Awake and alert, GCS 15, oriented to person, place, time, and situation. Cranial nerves II-XII grossly intact. Motor strength 5/5 in all extremities. Sensory grossly intact. Psych: Awake, alert, with orientation to person, place and time. Behavior, mood, and affect are within normal limits 04:11 ECG was reviewed by the Attending Physician. EKG time 0 151 sp4 Vital Signs: 00:20 BP 186 / 117; Pulse 124; Resp 16; Pulse Ox 100% ; Weight 108.86 kg (R); Height 5 ft. 7 kl in. ; Pain 0/10; 01:54 BP 148 / 96; Pulse 101; Resp 16; Pulse Ox 98% on R/A; km8 02:50 BP 138 / 93; Pulse 88; Resp 13; Pulse Ox 98% on R/A; tm6 04:03 BP 137 / 98; Pulse 95; Resp 16; Pulse Ox 95% ; tm6 04:28 BP 141 / 94; Pulse 96; Pulse Ox 100% ; tm6 00:20 Body Mass Index 37.59 (108.86 kg, 170.18 cm) kl 00:20 Pain Scale: Adult kl [place] Coma Score: 01:45 Eye Response: spontaneous(4). Motor Response: obeys commands(6). Verbal Response: km8 oriented(5). Total: 15. MDM: 01:42 Patient medically screened. sp4 04:17 Differential Diagnosis altered mental status, sepsis, flu, Tachycardia . Data reviewed: sp4 vital signs, nurses notes, old medical records, lab test result(s), EKG, radiologic studies, plain films. Consideration of Admission/Observation Escalation of care including admission/observation considered. ED course: Is basically unremarkable. EKG has mild tachycardia otherwise normal. Thyroid function panel is normal. Will recommend that patient sees rn angiography on outpatient basis for Holter monitor and echocardiogram. . 04:23 ED course: EXAM DESCRIPTION: Chest Single View RadLex: XR CHEST 1 VIEW CLINICAL sp4 HISTORY: 37 years Female, CHEST PAIN COMPARISON: None. FINDINGS: Single portable AP view of the chest. Probable soft tissue attenuation over the left lower chest. Normal size of the cardiac silhouette. No pulmonary vascular congestion. No definite consolidation, pleural effusion, or pneumothorax. Osseous structures are unremarkable. IMPRESSION: Probable soft tissue attenuation over the left lower chest. No definite acute radiographic abnormality. 06/11 00:56 Order name: Basic Metabolic Panel; Complete Time: 04:10 06/11 00:56 Order name: CBC with Diff; Complete Time: 04:10 06/11 00:56 Order name: LFT's; Complete Time: 04:10 06/11 00:56 Order name: Magnesium; Complete Time: 04:10 06/11 00:56 Order name: NT PRO-BNP; Complete Time: 04:10 06/11 00:56 Order name: PT-INR; Complete Time: 04:10 06/11 00:56 Order name: Troponin HS; Complete Time: 04:10 06/11 00:56 Order name: Test, Urine; Complete Time: 04:10 06/11 00:56 Order name: CRP; Complete Time: 04:10 06/11 00:56 Order name: Influenza Screen (a \T\ B); Complete Time: 04:10 06/11 00:56 Order name: SARS RAPID; Complete Time: 04:10 sp4 06/11 00:56 Order name: D-Dimer; Complete Time: 04:10 sp4 06/11 00:57 Order name: T4 Free; Complete Time: 04:10 sp4 06/11 00:57 Order name: TSH; Complete Time: 04:10 sp4 06/11 00:56 Order name: XRAY Chest (1 view) sp4 06/11 00:56 Order name: EKG; Complete Time: 00:56 sp4 06/11 00:56 Order name: Cardiac monitoring; Complete Time: :4 06/11 00:56 Order name: EKG - Nurse/Tech; Complete Time: sp4 06/11 00:56 Order name: IV Saline Lock; Complete Time: 4 06/11 00:56 Order name: Labs collected and sent; Complete Time: sp4 06/11 00:56 Order name: O2 Per Protocol; Complete Time: sp4 06/11 00:56 Order name: O2 Sat Monitoring; Complete Time: : EC:11 Rate is 104 beats/min. Rhythm is regular, Sinus tachycardia. QRS [place] is Normal. HI sp4 interval is normal. QRS interval is normal. QT interval is normal. No Q waves. T waves are Normal. No ST changes noted. Clinical impression: Normal ECG. Interpreted by me. Reviewed by me. Administered Medications: 01:55 Drug: NS 0.9% IV 1000 ml IV at 1 bolus Per protocol; 1000 mL bolus Route: IV; Rate: 1 km8 bolus; Site: left antecubital; Disposition Summary: 06/11/23 04:20 Discharge Ordered Problem: new sp4 Symptoms: have improved sp4 Condition: Stable sp4 Diagnosis - Palpitations sp4 - Noncardiac chest pain , sinus tachycardia sp4 Followup: sp4 - With: Juan Argueta MD - When: 7 - 10 days - Reason: Recheck today's complaints Discharge Instructions: - Discharge Summary Sheet sp4 - Palpitations, [id number] sp4 Forms: - Patient Portal Instructions sp4 Signatures: Dispatcher [employer] Tori Robert RN RN kl Potepalov, Sergey, MD MD sp4 Pedro, Gracy, RN RN [id number]
--- NOTE | 2023-06-11 04:20 | ER ---
Nurse's Notes [facility] Name: Shila Taylor Age: 37 yrs Sex: Female : 1985 Arrival Date: 06/11/2023 Time: 00:03 Bed 4 Private MD: Diagnosis: Palpitations;Noncardiac chest pain , sinus tachycardia Presentation: 06/11 00:20 Chief complaint: Patient states: high blood pressure this afternoon on BP meds reports kl feels like heart is racing. Coronavirus screen: Vaccine status: Patient reports receiving the 2nd dose of the covid vaccine. Ebola Screen: Patient negative for fever greater than or equal to 101.5 degrees Fahrenheit, and additional compatible Ebola Virus Disease symptoms. Initial Sepsis Screen: Does the patient meet any 2 criteria? No. Patient's initial sepsis screen is negative. Does the patient have a suspected source of infection? No. Patient's initial sepsis screen is negative. Risk Assessment: Do you want to hurt yourself or someone else? Patient reports no desire to harm self or others. Onset of symptoms was June 10, 2023. 00:20 Method Of Arrival: Ambulatory kl 00:20 Acuity: LEELA 3 kl Triage Assessment: 00:24 General: Appears in no apparent distress. Behavior is calm, cooperative. Pain: Denies kl pain. Cardiovascular: Reports palpitations, Rhythm is sinus tachycardia. Historical: - Allergies: 00:24 No Known Allergies; kl - Home Meds: 00:22 bisoprolol-hydrochlorothiazide 5-6.25 mg oral tablet [Active]; Suboxone 8 mg X 1 as kl needed [Active]; - PMHx: 00:22 Chronic pain; kl - PSHx: 00:22 section; kl - Immunization history:: Adult Immunizations not up to date. - Social history:: Smoking status: Patient denies any tobacco usage or history of. - Family history:: not pertinent. Screenin:45 [facility] ED Fall Risk Assessment (Adult) History of falling in the last 3 months, km8 including since admission No falls in past 3 months (0 pts) Confusion or Disorientation No (0 pts) Intoxicated or Sedated No (0 pts) Impaired Gait No (0 pts) Mobility Assist Device Used No (0 pt) Altered Elimination No (0 pt) Score/Fall Risk Level 0 - 2 = Low Risk Oriented to surroundings, Maintained a safe environment, Educated pt \T\ family on fall prevention, incl call for assistance when getting out of bed, Assessed \T\ reinforced patient's understanding of fall precautions. Abuse screen: Denies threats or abuse. Denies injuries from another. Nutritional screening: No deficits noted. Tuberculosis screening: No symptoms or risk factors identified. Assessment: 01:45 General: Appears in no apparent distress. comfortable, Behavior is calm, cooperative, km8 appropriate for age. Pain: Complains of pain in left axilla Pain currently is 0 out of 10 on a pain scale. at worst was 6 out of 10 on a pain scale. Quality of pain is described as sharp, Is intermittent. Neuro: Level of Consciousness is awake, alert, obeys commands, Oriented to person, place, time, situation. Cardiovascular: Reports chest pain, Denies shortness of breath, Capillary refill < 3 seconds Patient's skin is warm and dry. Chest pain is described as mild, quality is sharp, episodes are intermittent. Respiratory: Airway is patent Respiratory effort is even, unlabored, Respiratory pattern is regular, symmetrical. GI: No signs and/or symptoms were reported involving the gastrointestinal system. : No signs and/or symptoms were reported regarding the genitourinary system. EENT: No signs and/or symptoms were reported regarding the EENT system. Derm: Skin is intact, is healthy with good turgor, Skin is dry, Skin is pink, warm \T\ dry. normal, Skin temperature is warm. Musculoskeletal: No signs and/or symptoms reported regarding the musculoskeletal system. Circulation, motion, and sensation intact. Range of motion: intact in all extremities. 02:51 Reassessment: Patient appears in no apparent distress at this time. No changes from tm6 previously documented assessment. 04:03 Reassessment: Patient appears in no apparent distress at this time. No changes from tm6 previously documented assessment. Vital Signs: 00:20 BP 186 / 117; Pulse 124; Resp 16; Pulse Ox 100% ; Weight 108.86 kg (R); Height 5 ft. 7 kl in. ; Pain 0/10; 01:54 BP 148 / 96; Pulse 101; Resp 16; Pulse Ox 98% on R/A; km8 02:50 BP 138 / 93; Pulse 88; Resp 13; Pulse Ox 98% on R/A; tm6 04:03 BP 137 / 98; Pulse 95; Resp 16; Pulse Ox 95% ; tm6 04:28 BP 141 / 94; Pulse 96; Pulse Ox 100% ; tm6 00:20 Body Mass Index 37.59 (108.86 kg, 170.18 cm) kl 00:20 Pain Scale: Adult Hernandez Coma Score: 01:45 Eye Response: spontaneous(4). Motor Response: obeys commands(6). Verbal Response: km8 oriented(5). Total: 15. ED Course: 00:13 Patient arrived in ED. es 00:22 Triage completed. kl 00:48 Pedro Negron MD is Attending Physician. sp4 01:22 XRAY Chest (1 view) In Process Unspecified. EDMS 01:45 No provider procedures requiring assistance completed. km8 01:45 Patient has correct armband on for positive identification. Placed in gown. Bed in low km8 position. Call light in reach. Side rails up X 1. Client placed on continuous cardiac and pulse oximetry monitoring. NIBP monitoring applied. Warm blanket given. 01:49 Inserted saline lock: 20 gauge in left antecubital area, using aseptic technique. Blood km8 collected. 01:51 TSH Sent. km8 01:51 T4 Free Sent. km8 01:51 D-Dimer Sent. km8 01:51 SARS RAPID Sent. km8 01:51 Influenza Screen (a \T\ B) Sent. km8 01:51 CRP Sent. km8 01:51 Basic Metabolic Panel Sent. km8 01:51 CBC with Diff Sent. km8 01:51 LFT's Sent. km8 01:51 Magnesium Sent. km8 01:51 NT PRO-BNP Sent. km8 01:51 PT-INR Sent. km8 01:54 Arm band placed on right wrist. km8 04:19 Juan Argueta MD is Referral Physician. sp4 04:30 IV discontinued, intact, bleeding controlled, No redness/swelling at site. Pressure tm6 dressing applied. 04:30 Provided Education on: follow up with ob/gyn physician and PCP. tm6 Administered Medications: 01:55 Drug: NS 0.9% IV 1000 ml IV at 1 bolus Per protocol; 1000 mL bolus Route: IV; Rate: 1 km8 bolus; Site: left antecubital; Medication: 01:45 VIS not applicable for this client. km8 Outcome: 04:20 Discharge ordered by . spSharon 04:29 Discharged to home ambulatory, with family, tm6 04:29 Condition: stable 04:29 Discharge instructions given to patient, family, Instructed on discharge instructions, follow up and referral plans. Demonstrated understanding of instructions, follow-up care, 04:30 Patient left the ED. tm6 Signatures: Dispatcher [employer] Tori Robert, RN RN Kayla Benito Sergey, MD MD sp4 Gracy Vasquez RN RN km8 Gabriel Johnston RN RN tm6
[2023-06-11 08:08] VITALS: BP 141/94; O2SAT 100
--- NOTE | 2023-06-11 14:16 | RAD REPORT ---
EXAM DESCRIPTION: RAD - Chest Single View - 06/11/2023 1:21 am CLINICAL HISTORY: 37 years Female, CHEST PAIN COMPARISON: None. FINDINGS: Single portable AP view of the chest. Probable soft tissue attenuation over the left lower chest. Normal size of the cardiac silhouette. No pulmonary vascular congestion. No definite consolid ation, pleural effusion, or pneumothorax. Osseous structures are unremarkable. IMPRESSION: Probable soft tissue attenuation over the left lower chest. No definite acute radiograph ic abnormality. 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 The interpreting r adiologist is fully responsible for the content of the report.
--- NOTE | 2023-06-11 16:26 | EKG ---
Test Date: 2023-06-11 Test Time: 01:51:27 Assurance Manager: NALLELY MEASUREMENT RESULTS: Intervals: Rate: 104 AR: 166 QRSD: 82 QT: 352 QTc: 462 [place]: P: 37 AR: 166 QRS: 57 T: 4 INTERPRETIVE STATEMENTS: Sinus tachycardia Otherwise normal ECG Compared to ECG 07/28/2019 20:37:42 Sinus bradycardia no longer present Electronically Signed On 06-11-23 16:24:58 MOLD REPAIRER by Juan Argueta
== END ==
LOC: ER 00:03
DX: R00.0 Tachycardia, unspecified (principal); R00.2 Palpitations; R07.89 Other chest pain; G89.29 Other chronic pain
CPT/HCPCS: 36415; 71045; 80048; 80076; 81025; 83735; 83880; 84439; 84443; 84484; 85025; 85379; 85610; 86140; 87804; 87811; 93005; 99284; J7030